=== PATIENT | male | born 1945 | race Caucasian/White ===

== ENCOUNTER → 2016-04-03 | Outpatient (REF) | payer MEDICARE | LOC: M LAB REF 16:38 | PROVIDERS: ATTEND Internal Medicine | DX: M10.9 Gout, unspecified (principal) ==

== ENCOUNTER 2016-05-23 12:36 | Emergency (ER) | payer MEDICARE ==
[~2016-05-23] VITALS: Ht 180.3 cm; Wt 95.3 kg
[2016-05-23] MEDS ORDERED: DIGO0.12 PO (12:55)
[2016-05-23] MEDS ORDERED: PANT40TA2 PO (12:55)
[2016-05-23] MEDS ORDERED: POTA10TA2 PO (12:55)
[2016-05-23] MEDS ORDERED: INSUR (12:55)
[2016-05-23] MEDS ORDERED: LEVE1INJ5 (12:55)
[2016-05-23] MEDS ORDERED: AMOX500C (12:55)
[2016-05-23] MEDS ORDERED: GABA300C3 PO (12:55)
[2016-05-23] MEDS ORDERED: FURO20TA2 PO (12:55)
[2016-05-23] MEDS ORDERED: ONETTES6 (12:55)
[2016-05-23] MEDS ORDERED: PRED10TA (12:55)
[2016-05-23] MEDS ORDERED: XARE20TA PO (12:55)
[2016-05-23 14:11] LABS: BASO % 0.4 % (0.0-1.0); EOS # 0.1 K/mm3 (0.0-0.50); EOS % 0.8 % (0.0-3.0); LARGE UNSTAINED CELL # 0.1 K/mm3 (0.0-0.4); LARGE UNSTAINED CELL % 0.8 % (0.0-4.0); LYMPH # 0.3 K/mm3 (1.5-4.5); MEAN CORPUSCULAR HEMOGLOBIN 27.4 pg (27.0-33.0); MEAN CORPUSCULAR HGB CONC 31.7 g/dl (32.0-36.5); MEAN CORPUSCULAR VOLUME 86.2 fl (80.0-96.0); MONO # 0.3 K/mm3 (0.0-0.8); MONO % 3.5 % (0.0-5.0); NEUTROPHILS # 6.8 K/mm3 (1.8-7.7); NEUTROPHILS % 91.5 % (36.0-66.0); PLATELET COUNT, AUTOMATED 162 k/mm3 (150-450); RED CELL DISTRIBUTION WIDTH 15.3 % (11.5-14.5); WHITE BLOOD COUNT 7.5 K/mm3 (4.0-10.0)
[2016-05-23] MEDS ORDERED: METOPROLOL TART 50 MG TAB PO ONE (14:15)
[2016-05-23] MEDS: METOPROLOL 5 MG/5 ML VIAL IV SCH ×3 (14:20→14:52)
[2016-05-23 14:37] LABS: ANION GAP 15 MEQ/L (8-16); BLOOD UREA NITROGEN 26 MG/DL (7-18); CALCIUM LEVEL 9.1 MG/DL (8.8-10.2); CARBON DIOXIDE LEVEL 25 MEQ/L (21-32); CHLORIDE LEVEL 95 MEQ/L (98-107); CREATININE FOR GFR 1.48 MG/DL (0.70-1.30); GLOMERULAR FILTRATION RATE 50.2 (>49); GLUCOSE, FASTING 181 MG/DL (80-110); POTASSIUM SERUM 4.3 MEQ/L (3.5-5.1); SODIUM LEVEL 135 MEQ/L (136-145)
[2016-05-23 14:52] VITALS: BP 156/93
[2016-05-23] MEDS ORDERED: LOPR1TAB6 PO (16:48)
[2016-05-23 17:17] VITALS: BP 164/90
--- NOTE | 2016-05-24 20:46 | ECGEPIP ---
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
== END 2016-05-23 17:30 | disposition home or self-care (01) ==
LOC: M ED 14:49
DX: I48.91 Unspecified atrial fibrillation (principal); I10 Essential (primary) hypertension; I45.10 Unspecified right bundle-branch block; E11.9 Type 2 diabetes mellitus without complications; Z79.899 Other long term (current) drug therapy; Z79.01 Long term (current) use of anticoagulants; Z79.4 Long term (current) use of insulin

== ENCOUNTER 2016-11-25 23:54 | Emergency (ER) | payer MEDICARE ==
[~2016-11-25] VITALS: Ht 180.3 cm; Wt 100.0 kg
[~2016-11-25 23:54] MED LIST: AMOX500C; DIGO0.12 PO; FURO20TA2 PO; GABA-282 PO; INSUR; LEVE1INJ5; LOPR1TAB6 PO; ONETTES6; PANT40TA2 PO; POTA1TAB23 PO; PRED10TA2; XARE20TA PO
[2016-11-26 00:44] LABS: CALCIUM LEVEL 8.5 MG/DL (8.8-10.2); CREATININE FOR GFR 1.33 MG/DL (0.70-1.30); GLOMERULAR FILTRATION RATE 56.8 (>49); POTASSIUM SERUM 3.9 MEQ/L (3.5-5.1)
[2016-11-26 00:46] LABS: MEAN CORPUSCULAR HEMOGLOBIN 28.5 pg (27.0-33.0); MEAN CORPUSCULAR HGB CONC 33.2 g/dl (32.0-36.5); MEAN CORPUSCULAR VOLUME 85.8 fl (80.0-96.0); WHITE BLOOD COUNT 5.3 K/mm3 (4.0-10.0)
[2016-11-26 06:15] VITALS: BP 206/93
[2016-11-26] MEDS ORDERED: METOPROLOL TART 50 MG TAB PO ONE (06:15)
[2016-11-26 06:55] VITALS: BP 187/100
== END 2016-11-26 07:48 | disposition home or self-care (01) ==
LOC: EDUNIT# 23:54 → EDBD 23:54 → M ED 23:54
DX: T38.3X1A Poisoning by insulin and oral hypoglycemic [antidiabetic] drugs, accidental (unintentional), initial encounter (principal); Y92.018 Other place in single-family (private) house as the place of occurrence of the external cause; Y93.89 Activity, other specified; Y99.8 Other external cause status; E11.9 Type 2 diabetes mellitus without complications; Z79.4 Long term (current) use of insulin; Z79.899 Other long term (current) drug therapy; Z79.01 Long term (current) use of anticoagulants

== ENCOUNTER → 2016-11-30 | Outpatient (CLI) | payer MEDICARE ==
--- NOTE | 2016-11-30 16:40 | REP ---
Right wrist four views: There is demineralization. There is no fracture or dislocation. Joint spaces are unremarkable. There is calcified vascular atheroma. Signed by Armand Calvo MD 11/30/2016 04:32 P
== END ==
LOC: M WUC 10:54
PROVIDERS: ATTEND Physician Assistant
DX: S63.501A Unspecified sprain of right wrist, initial encounter (principal); M85.88 Other specified disorders of bone density and structure, other site; I70.8 Atherosclerosis of other arteries; X58.XXXA Exposure to other specified factors, initial encounter; Y92.9 Unspecified place or not applicable; Y93.9 Activity, unspecified; Y99.8 Other external cause status

== ENCOUNTER 2017-03-05 10:44 | Inpatient (IN) | payer MEDICARE ==
[2017-03-05 11:40] LABS: BASO # 0.1 10^3/uL (0.0-0.2); BASO % 0.8 % (0.0-1.0); EOS # 0.1 10^3/uL (0.0-0.50); EOS % 0.8 % (0.0-3.0); HEMATOCRIT 35.3 % (42.0-52.0); HEMOGLOBIN 11.2 g/dl (14.0-18.0); IMMATURE GRANULOCYTE # 0.1 10^3/uL (0-0); IMMATURE GRANULOCYTE % 0.9 % (0-0); LYMPH # 0.4 10^3/uL (1.5-4.5); LYMPH % 4.8 % (24.0-44.0); MEAN CORPUSCULAR HEMOGLOBIN 27.9 pg (27.0-33.0); MEAN CORPUSCULAR HGB CONC 31.7 g/dl (32.0-36.5); MONO % 11.2 % (0.0-5.0); NEUTROPHILS # 7.2 10^3/uL (1.8-7.7); NEUTROPHILS % 81.5 % (36.0-66.0); PLATELET COUNT, AUTOMATED 237 10^3/uL (150-450); RED BLOOD COUNT 4.01 10^6/uL (4.30-6.10); WHITE BLOOD COUNT 8.8 10^3/uL (4.0-10.0)
[2017-03-05 11:52] LABS: ANION GAP 9 MEQ/L (8-16); BLOOD UREA NITROGEN 17 MG/DL (7-18); CALCIUM LEVEL 8.6 MG/DL (8.8-10.2); CARBON DIOXIDE LEVEL 28 MEQ/L (21-32); CHLORIDE LEVEL 98 MEQ/L (98-107); CK-MB VALUE MASS 1.1 NG/ML (0.0-3.6); CPK CREATINE PHOSPHOKINASE 34 U/L (39-308); CREATININE FOR GFR 0.96 MG/DL (0.70-1.30); GLOMERULAR FILTRATION RATE > 60.0 (>49); GLUCOSE, FASTING 196 MG/DL (80-110); MB/CK RELATIVE INDEX 3.23 (< OR =4); NT-PRO BNP 6099 PG/ML (<125); POTASSIUM SERUM 3.4 MEQ/L (3.5-5.1); SODIUM LEVEL 135 MEQ/L (136-145); TROPONIN I 0.03 NG/ML (< 0.10)
[2017-03-05] MEDS: METOPROLOL TART 50 MG TAB PO (12:15)
[2017-03-05] MEDS: FUROSEMIDE 40 MG/4 ML VIAL (J1940) IV ×2 (12:15→17:27)
[2017-03-05 12:32] LABS: DIGOXIN LEVEL 0.7 NG/ML (0.5-2.0)
[2017-03-05] MEDS ORDERED: NITROGLYCERIN 2% OINT 1 GM *U/D* PKT As Ordered (12:55)
[2017-03-05] MEDS: NITROGLYCERIN 2% OINT 1 GM *U/D* PKT TOP (13:00)
[2017-03-05] MEDS: niCARdipine IV 40 MG in APPROPRIATE DILUENT 1 EA IV (13:08)
[2017-03-05 13:29] LABS: MAGNESIUM LEVEL 1.6 MG/DL (1.8-2.4)
[2017-03-05] MEDS: POTASSIUM CHLORIDE 10 MEQ SR TABLET PO (13:54)
[2017-03-05] MEDS: ONDANSETRON 4MG/2ML VIAL (J2405) IV (13:54)
[2017-03-05] MEDS ORDERED: IPRATROPIUM 0.5MG/ALBUTEROL 2.5MG INH SOL UD 3ML (DUONEB)(J7620) NEB (14:45)
[2017-03-05 14:54] LABS: C REACTIVE PROTEIN QUANTITATIV 2.77 MG/DL (0.00-0.30)
[2017-03-05] MEDS ORDERED: GLUCAGON FOR INJ 1 MG VIAL (J1610) SC (15:00)
[2017-03-05] MEDS ORDERED: DEXTROSE 50% 50 ML SYRINGE IV (15:00)
[2017-03-05] MEDS ORDERED: GLUCOSE 4 GM CHEW TABLET PO (15:00)
[2017-03-05] MEDS: hydrALAZINE INJ 20 MG/ML VIAL IV ×2 (17:26→22:26)
[2017-03-05] MEDS: MAG SULF 1GM/100ML (MAG RUN) 1 GM in APPROPRIATE DILUENT 1 EA IV (17:26)
[2017-03-05] MEDS: PANTOPRAZOLE 40MG TAB (PROTONIX) PO (17:27)
[2017-03-05] MEDS: MULTIVITAMINS/MINERALS THERAP 1 TAB PO (17:27)
[2017-03-05] MEDS: THIAMINE 100 MG TAB PO (17:27)
[2017-03-05] MEDS: DIGOXIN 0.125 MG TAB PO (17:27)
[2017-03-05] MEDS: FOLIC ACID 1 MG TAB PO (17:28)
[2017-03-05] MEDS ORDERED: CEFTRIAXONE SOD 1 GM in APPROPRIATE DILUENT 1 EA IV (18:00)
[2017-03-05] MEDS: AZITHROMYCIN INJ 500 MG, VIAL MATE ADAPTER 1 EACH in D5W 250 ML IV (18:26)
[2017-03-05] MEDS: HumaLOG INSULIN (NovoLOG) PER UNIT SC ×2 (18:27→20:50)
[2017-03-05] MEDS: OXAZEPAM 10 MG CAP PO (18:27)
[2017-03-05] MEDS: RIVAROXABAN 20 MG TAB (XARELTO) PO (18:27)
[2017-03-05 18:38] LABS: BEDSIDE GLUCOSE 241 MG/DL (80-115)
[2017-03-05 18:43] LABS: ANION GAP 10 MEQ/L (8-16); BLOOD UREA NITROGEN 17 MG/DL (7-18); CALCIUM LEVEL 8.1 MG/DL (8.8-10.2); CARBON DIOXIDE LEVEL 29 MEQ/L (21-32); CHLORIDE LEVEL 96 MEQ/L (98-107); CK-MB VALUE MASS 2.7 NG/ML (0.0-3.6); CPK CREATINE PHOSPHOKINASE 49 U/L (39-308); CREATININE FOR GFR 0.94 MG/DL (0.70-1.30); GLOMERULAR FILTRATION RATE > 60.0 (>49); GLUCOSE, FASTING 224 MG/DL (80-110); MB/CK RELATIVE INDEX 5.51 (< OR =4); POTASSIUM SERUM 4.4 MEQ/L (3.5-5.1); SODIUM LEVEL 135 MEQ/L (136-145)
[2017-03-05] MEDS: IPRATROPIUM 0.5MG/ALBUTEROL 2.5MG INH SOL UD 3ML (DUONEB)(J7620) NEB (19:39)
[2017-03-05 20:17] LABS: BEDSIDE GLUCOSE 275 MG/DL (80-115)
[2017-03-05] MEDS: LEVEMIR (INSULIN DETEMIR) 1 UNITS/0.01ML SC (20:49)
[2017-03-05] MEDS: CEFTRIAXONE SOD 1 GM in APPROPRIATE DILUENT 1 EA IV (20:49)
[2017-03-05] MEDS: GABAPENTIN 300 MG CAP PO (20:50)
[2017-03-05] MEDS: METOPROLOL TARTRATE 100 MG TAB PO (20:50)
[2017-03-05] MEDS: guaiFENesin ER 600 MG TAB PO (20:50)
[2017-03-05] MEDS ORDERED: SLF 3 ML SYR IV (21:15)
[2017-03-05] MEDS: SLF 3 ML SYR IV (22:27)
[2017-03-06] MEDS: OXAZEPAM 10 MG CAP PO ×5 (00:10→23:25)
[2017-03-06] MEDS: IPRATROPIUM 0.5MG/ALBUTEROL 2.5MG INH SOL UD 3ML (DUONEB)(J7620) NEB ×4 (01:17→20:17)
[2017-03-06 02:43] LABS: CK-MB VALUE MASS 2.4 NG/ML (0.0-3.6); CPK CREATINE PHOSPHOKINASE 40 U/L (39-308); TROPONIN I 0.18 NG/ML (< 0.10)
[2017-03-06] MEDS: hydrALAZINE INJ 20 MG/ML VIAL IV ×4 (04:24→22:48)
[2017-03-06] MEDS: SLF 3 ML SYR IV ×3 (05:15→22:00)
[2017-03-06 05:19] LABS: BASO # 0.1 10^3/uL (0.0-0.2); BASO % 0.7 % (0.0-1.0); EOS # 0.1 10^3/uL (0.0-0.50); EOS % 1.4 % (0.0-3.0); HEMOGLOBIN 10.3 g/dl (14.0-18.0); IMMATURE GRANULOCYTE % 0.5 % (0-0); LYMPH # 0.8 10^3/uL (1.5-4.5); LYMPH % 9.5 % (24.0-44.0); MEAN CORPUSCULAR HGB CONC 31.2 g/dl (32.0-36.5); MEAN CORPUSCULAR VOLUME 89.7 fl (80.0-96.0); MONO # 1.1 10^3/uL (0.0-0.8); MONO % 13.3 % (0.0-5.0); NEUTROPHILS # 6.4 10^3/uL (1.8-7.7); NEUTROPHILS % 74.6 % (36.0-66.0); PLATELET COUNT, AUTOMATED 183 10^3/uL (150-450); RED BLOOD COUNT 3.68 10^6/uL (4.30-6.10); RED CELL DISTRIBUTION WIDTH 15.1 % (11.5-14.5); WHITE BLOOD COUNT 8.6 10^3/uL (4.0-10.0)
[2017-03-06 05:42] LABS: ALBUMIN 2.8 GM/DL (3.2-5.2); ALBUMIN/GLOBULIN RATIO 0.78 (1.00-1.93); ALKALINE PHOSPHATASE 81 U/L (45-117); ALT/SGPT 13 U/L (12-78); ANION GAP 8 MEQ/L (8-16); AST/SGOT 19 U/L (7-37); BILIRUBIN,TOTAL 0.6 MG/DL (0.2-1.0); BLOOD UREA NITROGEN 18 MG/DL (7-18); C REACTIVE PROTEIN QUANTITATIV 4.17 MG/DL (0.00-0.30); CALCIUM LEVEL 7.6 MG/DL (8.8-10.2); CARBON DIOXIDE LEVEL 32 MEQ/L (21-32); CHLORIDE LEVEL 98 MEQ/L (98-107); CREATININE FOR GFR 1.06 MG/DL (0.70-1.30); GLOMERULAR FILTRATION RATE > 60.0 (>49); GLUCOSE, FASTING 87 MG/DL (80-110); MAGNESIUM LEVEL 1.8 MG/DL (1.8-2.4); POTASSIUM SERUM 3.5 MEQ/L (3.5-5.1); SODIUM LEVEL 138 MEQ/L (136-145); TOTAL PROTEIN 6.4 GM/DL (6.4-8.2)
[2017-03-06] MEDS: HumaLOG INSULIN (NovoLOG) PER UNIT SC ×4 (06:14→20:50)
[2017-03-06] MEDS: METOPROLOL TARTRATE 100 MG TAB PO ×2 (07:54→20:50)
[2017-03-06] MEDS: DIGOXIN 0.125 MG TAB PO (08:17)
[2017-03-06] MEDS: THIAMINE 100 MG TAB PO (08:18)
[2017-03-06] MEDS: GABAPENTIN 300 MG CAP PO ×2 (08:18→20:50)
[2017-03-06] MEDS: FUROSEMIDE 40 MG/4 ML VIAL (J1940) IV ×2 (08:18→18:08)
[2017-03-06] MEDS: POTASSIUM CHLORIDE 10 MEQ SR TABLET PO ×2 (08:18→11:43)
[2017-03-06] MEDS: MULTIVITAMINS/MINERALS THERAP 1 TAB PO (08:19)
[2017-03-06] MEDS: guaiFENesin ER 600 MG TAB PO ×2 (08:19→20:51)
[2017-03-06] MEDS: PANTOPRAZOLE 40MG TAB (PROTONIX) PO (08:19)
[2017-03-06] MEDS: FOLIC ACID 1 MG TAB PO (11:43)
[2017-03-06 11:46] LABS: BEDSIDE GLUCOSE 207 MG/DL (80-115)
[2017-03-06 17:09] LABS: BEDSIDE GLUCOSE 266 MG/DL (80-115)
[2017-03-06] MEDS: AZITHROMYCIN INJ 500 MG, VIAL MATE ADAPTER 1 EACH in D5W 250 ML IV (18:07)
[2017-03-06] MEDS: RIVAROXABAN 20 MG TAB (XARELTO) PO (18:08)
[2017-03-06 20:28] LABS: BEDSIDE GLUCOSE 315 MG/DL (80-115)
[2017-03-06] MEDS: CEFTRIAXONE SOD 1 GM in APPROPRIATE DILUENT 1 EA IV (20:49)
[2017-03-06] MEDS: LEVEMIR (INSULIN DETEMIR) 1 UNITS/0.01ML SC (20:50)
[2017-03-07] MEDS: IPRATROPIUM 0.5MG/ALBUTEROL 2.5MG INH SOL UD 3ML (DUONEB)(J7620) NEB ×4 (02:00→20:18)
[2017-03-07] MEDS: hydrALAZINE INJ 20 MG/ML VIAL IV ×4 (04:47→22:00)
[2017-03-07] MEDS: SLF 3 ML SYR IV ×3 (04:47→22:08)
[2017-03-07] MEDS: OXAZEPAM 10 MG CAP PO ×4 (05:25→18:26)
[2017-03-07] MEDS: ACETAMINOPHEN TAB 650MG DOSE (2X325MG) PO ×2 (05:28→17:16)
[2017-03-07 05:51] LABS: BASO # 0.1 10^3/uL (0.0-0.2); BASO % 0.7 % (0.0-1.0); EOS # 0.1 10^3/uL (0.0-0.50); EOS % 1.4 % (0.0-3.0); HEMATOCRIT 32.2 % (42.0-52.0); HEMOGLOBIN 10.2 g/dl (14.0-18.0); IMMATURE GRANULOCYTE # 0.1 10^3/uL (0-0); IMMATURE GRANULOCYTE % 0.7 % (0-0); LYMPH # 0.8 10^3/uL (1.5-4.5); LYMPH % 9.2 % (24.0-44.0); MEAN CORPUSCULAR HEMOGLOBIN 28.4 pg (27.0-33.0); MEAN CORPUSCULAR HGB CONC 31.7 g/dl (32.0-36.5); MEAN CORPUSCULAR VOLUME 89.7 fl (80.0-96.0); MONO # 1.1 10^3/uL (0.0-0.8); MONO % 12.6 % (0.0-5.0); NEUTROPHILS # 6.7 10^3/uL (1.8-7.7); NEUTROPHILS % 75.4 % (36.0-66.0); PLATELET COUNT, AUTOMATED 180 10^3/uL (150-450); RED BLOOD COUNT 3.59 10^6/uL (4.30-6.10); RED CELL DISTRIBUTION WIDTH 15.1 % (11.5-14.5); WHITE BLOOD COUNT 8.9 10^3/uL (4.0-10.0)
[2017-03-07 06:10] LABS: ALBUMIN 2.8 GM/DL (3.2-5.2); ALBUMIN/GLOBULIN RATIO 0.76 (1.00-1.93); ALKALINE PHOSPHATASE 79 U/L (45-117); ALT/SGPT 10 U/L (12-78); ANION GAP 8 MEQ/L (8-16); AST/SGOT 15 U/L (7-37); BILIRUBIN,TOTAL 0.4 MG/DL (0.2-1.0); BLOOD UREA NITROGEN 23 MG/DL (7-18); C REACTIVE PROTEIN QUANTITATIV 6.42 MG/DL (0.00-0.30); CALCIUM LEVEL 7.8 MG/DL (8.8-10.2); CARBON DIOXIDE LEVEL 30 MEQ/L (21-32); CHLORIDE LEVEL 103 MEQ/L (98-107); CREATININE FOR GFR 1.12 MG/DL (0.70-1.30); GLOMERULAR FILTRATION RATE > 60.0 (>49); GLUCOSE, FASTING 159 MG/DL (80-110); MAGNESIUM LEVEL 1.6 MG/DL (1.8-2.4); POTASSIUM SERUM 3.6 MEQ/L (3.5-5.1); SODIUM LEVEL 141 MEQ/L (136-145); TOTAL PROTEIN 6.5 GM/DL (6.4-8.2)
[2017-03-07] MEDS: HumaLOG INSULIN (NovoLOG) PER UNIT SC ×4 (08:00→20:12)
[2017-03-07] MEDS: FUROSEMIDE 40 MG/4 ML VIAL (J1940) IV ×3 (08:00→22:09)
[2017-03-07] MEDS: guaiFENesin ER 600 MG TAB PO ×2 (08:01→20:13)
[2017-03-07] MEDS: FOLIC ACID 1 MG TAB PO (08:01)
[2017-03-07] MEDS: DIGOXIN 0.125 MG TAB PO (08:01)
[2017-03-07] MEDS: PANTOPRAZOLE 40MG TAB (PROTONIX) PO (08:01)
[2017-03-07] MEDS: MULTIVITAMINS/MINERALS THERAP 1 TAB PO (08:01)
[2017-03-07] MEDS: METOPROLOL TARTRATE 100 MG TAB PO ×2 (08:01→20:13)
[2017-03-07] MEDS: GABAPENTIN 300 MG CAP PO ×2 (08:02→20:13)
[2017-03-07] MEDS: POTASSIUM CHLORIDE 10 MEQ SR TABLET PO (08:02)
[2017-03-07] MEDS: THIAMINE 100 MG TAB PO (08:04)
[2017-03-07 11:41] LABS: BEDSIDE GLUCOSE 237 MG/DL (80-115)
[2017-03-07] MEDS ORDERED: FUROSEMIDE 40 MG/4 ML VIAL (J1940) IV (14:00)
[2017-03-07] MEDS: amLODIPine 10 MG TAB PO (15:28)
[2017-03-07 17:14] LABS: BEDSIDE GLUCOSE 256 MG/DL (80-115)
[2017-03-07] MEDS: AZITHROMYCIN INJ 500 MG, VIAL MATE ADAPTER 1 EACH in D5W 250 ML IV (17:16)
[2017-03-07] MEDS: RIVAROXABAN 20 MG TAB (XARELTO) PO (17:17)
[2017-03-07 20:11] LABS: BEDSIDE GLUCOSE 286 MG/DL (80-115)
[2017-03-07] MEDS: LEVEMIR (INSULIN DETEMIR) 1 UNITS/0.01ML SC (20:12)
[2017-03-07] MEDS: CEFTRIAXONE SOD 1 GM in APPROPRIATE DILUENT 1 EA IV (20:13)
[2017-03-08] MEDS: OXAZEPAM 10 MG CAP PO ×5 (00:58→21:10)
[2017-03-08] MEDS: ACETAMINOPHEN TAB 650MG DOSE (2X325MG) PO ×2 (00:58→09:01)
[2017-03-08] MEDS: IPRATROPIUM 0.5MG/ALBUTEROL 2.5MG INH SOL UD 3ML (DUONEB)(J7620) NEB ×4 (01:53→20:47)
[2017-03-08] MEDS: hydrALAZINE INJ 20 MG/ML VIAL IV (04:37)
[2017-03-08 05:32] LABS: BASO % 0.4 % (0.0-1.0); EOS # 0.1 10^3/uL (0.0-0.50); EOS % 0.7 % (0.0-3.0); HEMATOCRIT 32.1 % (42.0-52.0); HEMOGLOBIN 10.2 g/dl (14.0-18.0); IMMATURE GRANULOCYTE # 0.1 10^3/uL (0-0); IMMATURE GRANULOCYTE % 0.6 % (0-0); LYMPH # 0.4 10^3/uL (1.5-4.5); LYMPH % 4.2 % (24.0-44.0); MEAN CORPUSCULAR HEMOGLOBIN 28.1 pg (27.0-33.0); MEAN CORPUSCULAR HGB CONC 31.8 g/dl (32.0-36.5); MEAN CORPUSCULAR VOLUME 88.4 fl (80.0-96.0); MONO # 1.3 10^3/uL (0.0-0.8); MONO % 12.3 % (0.0-5.0); NEUTROPHILS # 8.4 10^3/uL (1.8-7.7); NEUTROPHILS % 81.8 % (36.0-66.0); PLATELET COUNT, AUTOMATED 189 10^3/uL (150-450); RED BLOOD COUNT 3.63 10^6/uL (4.30-6.10); RED CELL DISTRIBUTION WIDTH 15.2 % (11.5-14.5); WHITE BLOOD COUNT 10.3 10^3/uL (4.0-10.0)
[2017-03-08 05:47] LABS: ALBUMIN 2.7 GM/DL (3.2-5.2); ALBUMIN/GLOBULIN RATIO 0.66 (1.00-1.93); ALKALINE PHOSPHATASE 80 U/L (45-117); ALT/SGPT 9 U/L (12-78); ANION GAP 9 MEQ/L (8-16); AST/SGOT 12 U/L (7-37); BILIRUBIN,TOTAL 0.8 MG/DL (0.2-1.0); BLOOD UREA NITROGEN 21 MG/DL (7-18); CALCIUM LEVEL 7.7 MG/DL (8.8-10.2); CARBON DIOXIDE LEVEL 29 MEQ/L (21-32); CHLORIDE LEVEL 98 MEQ/L (98-107); CREATININE FOR GFR 1.08 MG/DL (0.70-1.30); GLOMERULAR FILTRATION RATE > 60.0 (>49); GLUCOSE, FASTING 241 MG/DL (80-110); MAGNESIUM LEVEL 1.3 MG/DL (1.8-2.4); POTASSIUM SERUM 3.6 MEQ/L (3.5-5.1); SODIUM LEVEL 136 MEQ/L (136-145); TOTAL PROTEIN 6.8 GM/DL (6.4-8.2)
[2017-03-08] MEDS: FUROSEMIDE 40 MG/4 ML VIAL (J1940) IV ×2 (06:23→17:27)
[2017-03-08] MEDS: SLF 3 ML SYR IV ×3 (06:23→21:06)
[2017-03-08] MEDS: MAG SULF 1GM/100ML (MAG RUN) 1 GM in APPROPRIATE DILUENT 1 EA IV ×2 (06:54→08:58)
[2017-03-08] MEDS: THIAMINE 100 MG TAB PO (08:59)
[2017-03-08] MEDS: HumaLOG INSULIN (NovoLOG) PER UNIT SC ×4 (08:59→21:05)
[2017-03-08] MEDS: guaiFENesin ER 600 MG TAB PO ×2 (08:59→21:04)
[2017-03-08] MEDS: PANTOPRAZOLE 40MG TAB (PROTONIX) PO (08:59)
[2017-03-08] MEDS: GABAPENTIN 300 MG CAP PO ×2 (08:59→21:05)
[2017-03-08] MEDS: METOPROLOL TARTRATE 100 MG TAB PO ×2 (08:59→21:04)
[2017-03-08] MEDS: amLODIPine 10 MG TAB PO (08:59)
[2017-03-08] MEDS: POTASSIUM CHLORIDE 10 MEQ SR TABLET PO (09:00)
[2017-03-08] MEDS: FOLIC ACID 1 MG TAB PO (09:00)
[2017-03-08] MEDS: MULTIVITAMINS/MINERALS THERAP 1 TAB PO (09:00)
[2017-03-08] MEDS: DIGOXIN 0.125 MG TAB PO (09:00)
[2017-03-08 13:29] LABS: BEDSIDE GLUCOSE 269 MG/DL (80-115)
[2017-03-08] MEDS: AZITHROMYCIN INJ 500 MG, VIAL MATE ADAPTER 1 EACH in D5W 250 ML IV (17:27)
[2017-03-08] MEDS: RIVAROXABAN 20 MG TAB (XARELTO) PO (18:35)
[2017-03-08 21:05] LABS: BEDSIDE GLUCOSE 282 MG/DL (80-115)
[2017-03-08 21:05] LABS: BEDSIDE GLUCOSE 239 MG/DL (80-115)
[2017-03-08] MEDS: LEVEMIR (INSULIN DETEMIR) 1 UNITS/0.01ML SC (21:06)
[2017-03-08] MEDS: CEFTRIAXONE SOD 1 GM in APPROPRIATE DILUENT 1 EA IV (21:06)
[2017-03-09] MEDS: ACETAMINOPHEN TAB 650MG DOSE (2X325MG) PO ×2 (00:12→21:21)
[2017-03-09] MEDS: OXAZEPAM 10 MG CAP PO ×5 (00:13→17:17)
[2017-03-09] MEDS: FUROSEMIDE 40 MG/4 ML VIAL (J1940) IV ×5 (00:17→21:20)
[2017-03-09] MEDS: IPRATROPIUM 0.5MG/ALBUTEROL 2.5MG INH SOL UD 3ML (DUONEB)(J7620) NEB ×4 (02:00→21:39)
[2017-03-09 04:33] LABS: BEDSIDE GLUCOSE 213 MG/DL (80-115)
[2017-03-09 05:33] LABS: BASO % 0.3 % (0.0-1.0); HEMATOCRIT 30.5 % (42.0-52.0); HEMOGLOBIN 9.7 g/dl (14.0-18.0); IMMATURE GRANULOCYTE # 0.1 10^3/uL (0-0); IMMATURE GRANULOCYTE % 0.7 % (0-0); LYMPH # 0.5 10^3/uL (1.5-4.5); LYMPH % 3.3 % (24.0-44.0); MEAN CORPUSCULAR HEMOGLOBIN 28.4 pg (27.0-33.0); MEAN CORPUSCULAR HGB CONC 31.8 g/dl (32.0-36.5); MEAN CORPUSCULAR VOLUME 89.2 fl (80.0-96.0); MONO # 1.8 10^3/uL (0.0-0.8); MONO % 12.8 % (0.0-5.0); NEUTROPHILS # 11.6 10^3/uL (1.8-7.7); NEUTROPHILS % 82.9 % (36.0-66.0); PLATELET COUNT, AUTOMATED 170 10^3/uL (150-450); RED BLOOD COUNT 3.42 10^6/uL (4.30-6.10); RED CELL DISTRIBUTION WIDTH 15.4 % (11.5-14.5)
[2017-03-09 05:59] LABS: ALBUMIN 2.6 GM/DL (3.2-5.2); ALKALINE PHOSPHATASE 69 U/L (45-117); ALT/SGPT 9 U/L (12-78); ANION GAP 8 MEQ/L (8-16); AST/SGOT 11 U/L (7-37); BILIRUBIN,TOTAL 0.7 MG/DL (0.2-1.0); BLOOD UREA NITROGEN 21 MG/DL (7-18); CARBON DIOXIDE LEVEL 30 MEQ/L (21-32); CHLORIDE LEVEL 94 MEQ/L (98-107); CREATININE FOR GFR 1.09 MG/DL (0.70-1.30); GLOMERULAR FILTRATION RATE > 60.0 (>49); GLUCOSE, FASTING 220 MG/DL (80-110); MAGNESIUM LEVEL 1.8 MG/DL (1.8-2.4); POTASSIUM SERUM 3.2 MEQ/L (3.5-5.1); SODIUM LEVEL 132 MEQ/L (136-145); TOTAL PROTEIN 6.9 GM/DL (6.4-8.2)
[2017-03-09] MEDS: SLF 3 ML SYR IV ×3 (06:00→22:11)
[2017-03-09] MEDS: HumaLOG INSULIN (NovoLOG) PER UNIT SC ×4 (08:45→22:10)
[2017-03-09] MEDS: GABAPENTIN 300 MG CAP PO ×2 (08:46→21:20)
[2017-03-09] MEDS: amLODIPine 10 MG TAB PO (08:46)
[2017-03-09] MEDS: MULTIVITAMINS/MINERALS THERAP 1 TAB PO (08:46)
[2017-03-09] MEDS: guaiFENesin ER 600 MG TAB PO ×2 (08:46→21:20)
[2017-03-09] MEDS: THIAMINE 100 MG TAB PO (08:46)
[2017-03-09] MEDS: METOPROLOL TARTRATE 100 MG TAB PO ×2 (08:47→21:20)
[2017-03-09] MEDS: POTASSIUM CHLORIDE 10 MEQ SR TABLET PO ×2 (08:47→08:50)
[2017-03-09] MEDS: DIGOXIN 0.125 MG TAB PO (08:47)
[2017-03-09] MEDS: FOLIC ACID 1 MG TAB PO (08:47)
[2017-03-09] MEDS: PANTOPRAZOLE 40MG TAB (PROTONIX) PO (08:47)
[2017-03-09 09:18] LABS: ABG BASE EXCESS 4.7 (-2.0-2.0); ABG HCO3 28.2 MEQ/L (22.0-26.0); ABG O2 SATURATION 95.8 % (95.0-99.0); ABG PARTIAL PRESSURE CO2 37.8 mmHg (35.0-45.0); ABG PARTIAL PRESSURE O2 76.3 mmHg (75.0-100.0); ABG STANDARD HCO3 28.7 MEQ/L (22.0-26.0); ABG TOTAL CO2 29.4 MEQ/L (23.0-31.0); ABG pH (ARTERIAL) 7.491 UNITS (7.350-7.450)
[2017-03-09 10:03] LABS: NT-PRO BNP 6612 PG/ML (<125)
[2017-03-09 10:16] LABS: OSMOLALITY SERUM 290 MOSM/KG (280-301)
[2017-03-09 11:47] LABS: KETONE, URINE AUTO RFX NEGATIVE (NEGATIVE); LEUKOCYTE ESTERASE UR AUTO RFX NEGATIVE (NEGATIVE); NITRITE, URINE AUTO RFX NEGATIVE (NEGATIVE); RBC, URINE AUTO RFX 0 /HPF (0-3); SPECIFIC GRAVITY UR AUTO RFX 1.013 (1.002-1.035); SQUAM EPITHELIAL CELL UR AURFX 0 /HPF (0-6); WBC, URINE AUTO RFX 1 /HPF (0-3)
[2017-03-09 11:48] LABS: BEDSIDE GLUCOSE 210 MG/DL (80-115)
[2017-03-09 11:49] LABS: OSMOLALITY URINE 429 MOSM/KG (500-800)
[2017-03-09] MEDS: RIVAROXABAN 20 MG TAB (XARELTO) PO (17:17)
[2017-03-09] MEDS: AZITHROMYCIN INJ 500 MG, VIAL MATE ADAPTER 1 EACH in D5W 250 ML IV (17:17)
[2017-03-09 17:32] LABS: BEDSIDE GLUCOSE 202 MG/DL (80-115)
[2017-03-09] MEDS: CEFTRIAXONE SOD 1 GM in APPROPRIATE DILUENT 1 EA IV (21:22)
[2017-03-09] MEDS: LEVEMIR (INSULIN DETEMIR) 1 UNITS/0.01ML SC (21:22)
[2017-03-09 22:26] LABS: BEDSIDE GLUCOSE 271 MG/DL (80-115)
[2017-03-10] MEDS: IPRATROPIUM 0.5MG/ALBUTEROL 2.5MG INH SOL UD 3ML (DUONEB)(J7620) NEB ×4 (02:24→20:45)
[2017-03-10] MEDS: FUROSEMIDE 40 MG/4 ML VIAL (J1940) IV ×6 (03:56→20:49)
[2017-03-10] MEDS: ACETAMINOPHEN TAB 650MG DOSE (2X325MG) PO ×2 (04:02→08:36)
[2017-03-10] MEDS: SLF 3 ML SYR IV ×3 (04:03→21:02)
[2017-03-10] MEDS: OXAZEPAM 10 MG CAP PO ×4 (05:34→16:39)
[2017-03-10 05:35] LABS: BASO % 0.4 % (0.0-1.0); EOS % 0.3 % (0.0-3.0); HEMATOCRIT 30.1 % (42.0-52.0); HEMOGLOBIN 9.6 g/dl (14.0-18.0); IMMATURE GRANULOCYTE # 0.1 10^3/uL (0-0); IMMATURE GRANULOCYTE % 0.4 % (0-0); LYMPH # 0.5 10^3/uL (1.5-4.5); LYMPH % 4.5 % (24.0-44.0); MEAN CORPUSCULAR HEMOGLOBIN 28.3 pg (27.0-33.0); MEAN CORPUSCULAR HGB CONC 31.9 g/dl (32.0-36.5); MEAN CORPUSCULAR VOLUME 88.8 fl (80.0-96.0); MONO % 9.1 % (0.0-5.0); NEUTROPHILS # 9.5 10^3/uL (1.8-7.7); NEUTROPHILS % 85.3 % (36.0-66.0); PLATELET COUNT, AUTOMATED 193 10^3/uL (150-450); RED BLOOD COUNT 3.39 10^6/uL (4.30-6.10); RED CELL DISTRIBUTION WIDTH 15.3 % (11.5-14.5); WHITE BLOOD COUNT 11.1 10^3/uL (4.0-10.0)
[2017-03-10 05:58] LABS: ALBUMIN 2.3 GM/DL (3.2-5.2); ALBUMIN/GLOBULIN RATIO 0.51 (1.00-1.93); ALKALINE PHOSPHATASE 75 U/L (45-117); ALT/SGPT 10 U/L (12-78); ANION GAP 7 MEQ/L (8-16); AST/SGOT 14 U/L (7-37); BILIRUBIN,TOTAL 0.6 MG/DL (0.2-1.0); BLOOD UREA NITROGEN 27 MG/DL (7-18); CARBON DIOXIDE LEVEL 32 MEQ/L (21-32); CHLORIDE LEVEL 96 MEQ/L (98-107); CREATININE FOR GFR 1.17 MG/DL (0.70-1.30); GLOMERULAR FILTRATION RATE > 60.0 (>49); GLUCOSE, FASTING 199 MG/DL (80-110); MAGNESIUM LEVEL 1.9 MG/DL (1.8-2.4); POTASSIUM SERUM 3.4 MEQ/L (3.5-5.1); SODIUM LEVEL 135 MEQ/L (136-145); TOTAL PROTEIN 6.8 GM/DL (6.4-8.2)
[2017-03-10] MEDS: FOLIC ACID 1 MG TAB PO (08:35)
[2017-03-10] MEDS: MULTIVITAMINS/MINERALS THERAP 1 TAB PO (08:35)
[2017-03-10] MEDS: THIAMINE 100 MG TAB PO (08:35)
[2017-03-10] MEDS: guaiFENesin ER 600 MG TAB PO ×2 (08:35→20:51)
[2017-03-10] MEDS: PANTOPRAZOLE 40MG TAB (PROTONIX) PO (08:35)
[2017-03-10] MEDS: GABAPENTIN 300 MG CAP PO ×2 (08:36→20:51)
[2017-03-10] MEDS: POTASSIUM CHLORIDE 10 MEQ SR TABLET PO (08:36)
[2017-03-10] MEDS: amLODIPine 10 MG TAB PO (08:49)
[2017-03-10] MEDS: DIGOXIN 0.125 MG TAB PO (08:49)
[2017-03-10] MEDS: METOPROLOL TARTRATE 100 MG TAB PO ×2 (08:49→20:51)
[2017-03-10] MEDS: HumaLOG INSULIN (NovoLOG) PER UNIT SC ×4 (08:55→21:01)
[2017-03-10 12:14] LABS: BEDSIDE GLUCOSE 212 MG/DL (80-115)
[2017-03-10] MEDS: AZITHROMYCIN INJ 500 MG, VIAL MATE ADAPTER 1 EACH in D5W 250 ML IV (16:40)
[2017-03-10 17:59] LABS: BEDSIDE GLUCOSE 275 MG/DL (80-115)
[2017-03-10] MEDS: RIVAROXABAN 20 MG TAB (XARELTO) PO (18:44)
[2017-03-10] MEDS: CEFTRIAXONE SOD 1 GM in APPROPRIATE DILUENT 1 EA IV (20:57)
[2017-03-10] MEDS: LEVEMIR (INSULIN DETEMIR) 1 UNITS/0.01ML SC (21:01)
[2017-03-10 21:20] LABS: BEDSIDE GLUCOSE 345 MG/DL (80-115)
[2017-03-11] MEDS: OXAZEPAM 10 MG CAP PO ×4 (00:49→17:17)
[2017-03-11] MEDS: FUROSEMIDE 40 MG/4 ML VIAL (J1940) IV ×6 (00:50→19:35)
[2017-03-11] MEDS: IPRATROPIUM 0.5MG/ALBUTEROL 2.5MG INH SOL UD 3ML (DUONEB)(J7620) NEB ×4 (02:00→21:08)
[2017-03-11] MEDS: SLF 3 ML SYR IV ×3 (05:08→20:23)
[2017-03-11 05:09] LABS: BASO % 0.4 % (0.0-1.0); HEMATOCRIT 31.1 % (42.0-52.0); HEMOGLOBIN 9.9 g/dl (14.0-18.0); IMMATURE GRANULOCYTE # 0.1 10^3/uL (0-0); IMMATURE GRANULOCYTE % 0.8 % (0-0); LYMPH # 0.4 10^3/uL (1.5-4.5); LYMPH % 4.1 % (24.0-44.0); MEAN CORPUSCULAR HEMOGLOBIN 27.4 pg (27.0-33.0); MEAN CORPUSCULAR HGB CONC 31.8 g/dl (32.0-36.5); MEAN CORPUSCULAR VOLUME 86.1 fl (80.0-96.0); MONO # 1.2 10^3/uL (0.0-0.8); MONO % 10.8 % (0.0-5.0); NEUTROPHILS # 8.9 10^3/uL (1.8-7.7); NEUTROPHILS % 83.9 % (36.0-66.0); PLATELET COUNT, AUTOMATED 219 10^3/uL (150-450); RED BLOOD COUNT 3.61 10^6/uL (4.30-6.10); RED CELL DISTRIBUTION WIDTH 15.4 % (11.5-14.5); WHITE BLOOD COUNT 10.6 10^3/uL (4.0-10.0)
[2017-03-11 05:28] LABS: ALBUMIN 2.2 GM/DL (3.2-5.2); ALBUMIN/GLOBULIN RATIO 0.47 (1.00-1.93); ALKALINE PHOSPHATASE 94 U/L (45-117); ALT/SGPT 11 U/L (12-78); ANION GAP 10 MEQ/L (8-16); AST/SGOT 17 U/L (7-37); BILIRUBIN,TOTAL 0.8 MG/DL (0.2-1.0); BLOOD UREA NITROGEN 29 MG/DL (7-18); CALCIUM LEVEL 8.6 MG/DL (8.8-10.2); CARBON DIOXIDE LEVEL 31 MEQ/L (21-32); CHLORIDE LEVEL 91 MEQ/L (98-107); CREATININE FOR GFR 1.23 MG/DL (0.70-1.30); GLOMERULAR FILTRATION RATE > 60.0 (>49); GLUCOSE, FASTING 260 MG/DL (80-110); MAGNESIUM LEVEL 1.7 MG/DL (1.8-2.4); POTASSIUM SERUM 3.2 MEQ/L (3.5-5.1); SODIUM LEVEL 132 MEQ/L (136-145); TOTAL PROTEIN 6.9 GM/DL (6.4-8.2)
[2017-03-11 07:14] LABS: APPEARANCE, URINE CLEAR (CLEAR); BACTERIA, URINE AUTO NEGATIVE (NEGATIVE); BILIRUBIN, URINE AUTO NEGATIVE (NEGATIVE); BLOOD, URINE BLOOD NEGATIVE (NEGATIVE); COLOR, URINE YELLOW (YELLOW); GLUCOSE, URINE (UA) AUTO 1+ mg/dL (NEGATIVE); KETONE, URINE AUTO NEGATIVE (NEGATIVE); LEUKOCYTE ESTERASE, URINE AUTO NEGATIVE (NEGATIVE); NITRITE, URINE AUTO NEGATIVE (NEGATIVE); PROTEIN, URINE AUTO NEGATIVE (NEGATIVE); RBC, URINE AUTO 1 /HPF (0-3); SPECIFIC GRAVITY URINE AUTO 1.008 (1.002-1.035); SQUAMOUS EPITHELIAL CELL UR AU 0 /HPF (0-6); UROBILINOGEN, URINE AUTO 0.2 mg/dL (0.0-2.0); WBC, URINE AUTO 0 /HPF (0-3)
[2017-03-11] MEDS: HumaLOG INSULIN (NovoLOG) PER UNIT SC ×4 (08:42→20:21)
[2017-03-11] MEDS: PANTOPRAZOLE 40MG TAB (PROTONIX) PO (08:42)
[2017-03-11] MEDS: DIGOXIN 0.125 MG TAB PO (08:43)
[2017-03-11] MEDS: guaiFENesin ER 600 MG TAB PO ×2 (08:43→20:22)
[2017-03-11] MEDS: FOLIC ACID 1 MG TAB PO (08:43)
[2017-03-11] MEDS: amLODIPine 10 MG TAB PO (08:43)
[2017-03-11] MEDS: METOPROLOL TARTRATE 100 MG TAB PO ×2 (08:43→20:22)
[2017-03-11] MEDS: POTASSIUM CHLORIDE 10 MEQ SR TABLET PO ×3 (08:44→11:32)
[2017-03-11] MEDS: GABAPENTIN 300 MG CAP PO ×2 (08:44→20:22)
[2017-03-11] MEDS: MULTIVITAMINS/MINERALS THERAP 1 TAB PO (08:44)
[2017-03-11] MEDS: MAG SULF 1GM/100ML (MAG RUN) 1 GM in APPROPRIATE DILUENT 1 EA IV (08:44)
[2017-03-11] MEDS: THIAMINE 100 MG TAB PO (08:47)
[2017-03-11] MEDS ORDERED: AZITHROMYCIN 250 MG TAB PO (09:00)
[2017-03-11 11:32] LABS: BEDSIDE GLUCOSE 355 MG/DL (80-115)
[2017-03-11 17:05] LABS: BEDSIDE GLUCOSE 293 MG/DL (80-115)
[2017-03-11] MEDS: RIVAROXABAN 20 MG TAB (XARELTO) PO (17:17)
[2017-03-11] MEDS: VANCOMYCIN HCL 1,000 MG, VIAL MATE ADAPTER 1 EACH in D5W 250 ML IV (17:18)
[2017-03-11] MEDS: DOXYCYCLINE HYCLATE 100 MG in D5W MINI-BAG PLUS 100 ML IV (19:35)
[2017-03-11] MEDS: ACETAMINOPHEN TAB 650MG DOSE (2X325MG) PO (19:39)
[2017-03-11] MEDS: LEVEMIR (INSULIN DETEMIR) 1 UNITS/0.01ML SC (20:22)
[2017-03-11 20:36] LABS: BEDSIDE GLUCOSE 344 MG/DL (80-115)
[2017-03-12] MEDS: OXAZEPAM 10 MG CAP PO ×3 (00:03→17:00)
[2017-03-12] MEDS: FUROSEMIDE 40 MG/4 ML VIAL (J1940) IV ×4 (01:58→12:31)
[2017-03-12] MEDS: IPRATROPIUM 0.5MG/ALBUTEROL 2.5MG INH SOL UD 3ML (DUONEB)(J7620) NEB ×4 (02:00→23:02)
[2017-03-12] MEDS: DOXYCYCLINE HYCLATE 100 MG in D5W MINI-BAG PLUS 100 ML IV ×2 (04:43→16:58)
[2017-03-12 05:44] LABS: BASO # 0.1 10^3/uL (0.0-0.2); BASO % 0.6 % (0.0-1.0); EOS % 0.3 % (0.0-3.0); HEMOGLOBIN 10.1 g/dl (14.0-18.0); IMMATURE GRANULOCYTE # 0.1 10^3/uL (0-0); IMMATURE GRANULOCYTE % 0.5 % (0-0); LYMPH # 0.5 10^3/uL (1.5-4.5); MEAN CORPUSCULAR HEMOGLOBIN 27.3 pg (27.0-33.0); MEAN CORPUSCULAR HGB CONC 31.6 g/dl (32.0-36.5); MEAN CORPUSCULAR VOLUME 86.5 fl (80.0-96.0); MONO # 0.9 10^3/uL (0.0-0.8); MONO % 8.1 % (0.0-5.0); NEUTROPHILS # 9.1 10^3/uL (1.8-7.7); NEUTROPHILS % 85.5 % (36.0-66.0); PLATELET COUNT, AUTOMATED 273 10^3/uL (150-450); RED CELL DISTRIBUTION WIDTH 15.6 % (11.5-14.5); WHITE BLOOD COUNT 10.6 10^3/uL (4.0-10.0)
[2017-03-12] MEDS: VANCOMYCIN HCL 1,000 MG, VIAL MATE ADAPTER 1 EACH in D5W 250 ML IV (05:58)
[2017-03-12] MEDS: SLF 3 ML SYR IV ×3 (05:58→21:53)
[2017-03-12 06:07] LABS: ALKALINE PHOSPHATASE 86 U/L (45-117); ALT/SGPT 12 U/L (12-78); ANION GAP 10 MEQ/L (8-16); AST/SGOT 19 U/L (7-37); BILIRUBIN,TOTAL 0.7 MG/DL (0.2-1.0); BLOOD UREA NITROGEN 37 MG/DL (7-18); CALCIUM LEVEL 8.6 MG/DL (8.8-10.2); CARBON DIOXIDE LEVEL 29 MEQ/L (21-32); CHLORIDE LEVEL 95 MEQ/L (98-107); CREATININE FOR GFR 1.27 MG/DL (0.70-1.30); GLOMERULAR FILTRATION RATE 59.9 (>49); GLUCOSE, FASTING 255 MG/DL (80-110); MAGNESIUM LEVEL 2.3 MG/DL (1.8-2.4); SODIUM LEVEL 134 MEQ/L (136-145)
[2017-03-12] MEDS: GABAPENTIN 300 MG CAP PO ×2 (08:27→21:17)
[2017-03-12] MEDS: HumaLOG INSULIN (NovoLOG) PER UNIT SC ×4 (08:27→21:15)
[2017-03-12] MEDS: POTASSIUM CHLORIDE 10 MEQ SR TABLET PO (08:27)
[2017-03-12] MEDS: FOLIC ACID 1 MG TAB PO (08:28)
[2017-03-12] MEDS: DIGOXIN 0.125 MG TAB PO (08:28)
[2017-03-12] MEDS: PANTOPRAZOLE 40MG TAB (PROTONIX) PO (08:28)
[2017-03-12] MEDS: amLODIPine 10 MG TAB PO (08:28)
[2017-03-12] MEDS: METOPROLOL TARTRATE 100 MG TAB PO ×2 (08:28→21:16)
[2017-03-12] MEDS: MULTIVITAMINS/MINERALS THERAP 1 TAB PO (08:28)
[2017-03-12] MEDS: guaiFENesin ER 600 MG TAB PO ×2 (08:28→21:17)
[2017-03-12] MEDS: predniSONE 20 MG TAB PO (08:31)
[2017-03-12] MEDS: THIAMINE 100 MG TAB PO (08:31)
[2017-03-12 08:46] LABS: URIC ACID 9.6 MG/DL (3.5-7.2)
[2017-03-12 12:10] LABS: BEDSIDE GLUCOSE 293 MG/DL (80-115)
[2017-03-12 14:10] LABS: AMMONIA < 10 uMOL/L (<32)
[2017-03-12 16:14] LABS: ABG BASE EXCESS -1.9 (-2.0-2.0); ABG HCO3 21.9 MEQ/L (22.0-26.0); ABG PARTIAL PRESSURE CO2 33.6 mmHg (35.0-45.0); ABG STANDARD HCO3 22.6 MEQ/L (22.0-26.0); ABG TOTAL CO2 22.9 MEQ/L (23.0-31.0); ABG pH (ARTERIAL) 7.431 UNITS (7.350-7.450)
[2017-03-12] MEDS: RIVAROXABAN 20 MG TAB (XARELTO) PO (17:00)
[2017-03-12 17:13] LABS: BEDSIDE GLUCOSE 391 MG/DL (80-115)
[2017-03-12 21:12] LABS: BEDSIDE GLUCOSE 406 MG/DL (80-115)
[2017-03-12] MEDS: LEVEMIR (INSULIN DETEMIR) 1 UNITS/0.01ML SC (21:15)
[2017-03-13] MEDS: IPRATROPIUM 0.5MG/ALBUTEROL 2.5MG INH SOL UD 3ML (DUONEB)(J7620) NEB ×4 (01:38→20:17)
[2017-03-13] MEDS: DOXYCYCLINE HYCLATE 100 MG in D5W MINI-BAG PLUS 100 ML IV ×2 (05:10→16:27)
[2017-03-13] MEDS: SLF 3 ML SYR IV ×3 (05:11→21:52)
[2017-03-13] MEDS: OXAZEPAM 10 MG CAP PO ×3 (05:42→21:55)
[2017-03-13 07:42] LABS: BASO % 0.2 % (0.0-1.0); HEMOGLOBIN 9.1 g/dl (14.0-18.0); IMMATURE GRANULOCYTE % 0.3 % (0-0); LYMPH # 0.6 10^3/uL (1.5-4.5); MEAN CORPUSCULAR HEMOGLOBIN 27.8 pg (27.0-33.0); MEAN CORPUSCULAR HGB CONC 31.4 g/dl (32.0-36.5); MEAN CORPUSCULAR VOLUME 88.7 fl (80.0-96.0); MONO # 0.6 10^3/uL (0.0-0.8); NEUTROPHILS # 7.9 10^3/uL (1.8-7.7); NEUTROPHILS % 86.5 % (36.0-66.0); PLATELET COUNT, AUTOMATED 309 10^3/uL (150-450); RED BLOOD COUNT 3.27 10^6/uL (4.30-6.10); RED CELL DISTRIBUTION WIDTH 15.5 % (11.5-14.5); WHITE BLOOD COUNT 9.1 10^3/uL (4.0-10.0)
[2017-03-13 07:43] LABS: ALBUMIN/GLOBULIN RATIO 0.39 (1.00-1.93); ALKALINE PHOSPHATASE 99 U/L (45-117); ALT/SGPT 19 U/L (12-78); ANION GAP 11 MEQ/L (8-16); AST/SGOT 29 U/L (7-37); BILIRUBIN,TOTAL 0.4 MG/DL (0.2-1.0); BLOOD UREA NITROGEN 55 MG/DL (7-18); CARBON DIOXIDE LEVEL 27 MEQ/L (21-32); CHLORIDE LEVEL 95 MEQ/L (98-107); CREATININE FOR GFR 1.37 MG/DL (0.70-1.30); GLOMERULAR FILTRATION RATE 54.8 (>49); MAGNESIUM LEVEL 2.6 MG/DL (1.8-2.4); POTASSIUM SERUM 4.2 MEQ/L (3.5-5.1); SODIUM LEVEL 133 MEQ/L (136-145); TOTAL PROTEIN 7.1 GM/DL (6.4-8.2)
[2017-03-13 07:49] LABS: GLUCOSE, FASTING 408 MG/DL (80-110)
[2017-03-13] MEDS: HumaLOG INSULIN (NovoLOG) PER UNIT SC ×4 (08:23→21:50)
[2017-03-13] MEDS: FOLIC ACID 1 MG TAB PO (08:23)
[2017-03-13] MEDS: guaiFENesin ER 600 MG TAB PO ×2 (08:23→21:51)
[2017-03-13] MEDS: PANTOPRAZOLE 40MG TAB (PROTONIX) PO (08:23)
[2017-03-13] MEDS: FUROSEMIDE 40 MG TAB PO (08:23)
[2017-03-13] MEDS: THIAMINE 100 MG TAB PO (08:23)
[2017-03-13] MEDS: METOPROLOL TARTRATE 100 MG TAB PO ×2 (08:25→21:51)
[2017-03-13] MEDS: DIGOXIN 0.125 MG TAB PO (08:25)
[2017-03-13] MEDS: MULTIVITAMINS/MINERALS THERAP 1 TAB PO (08:25)
[2017-03-13] MEDS: GABAPENTIN 300 MG CAP PO ×2 (08:25→21:51)
[2017-03-13] MEDS: predniSONE 20 MG TAB PO (08:26)
[2017-03-13] MEDS: POTASSIUM CHLORIDE 10 MEQ SR TABLET PO (08:26)
[2017-03-13] MEDS: amLODIPine 10 MG TAB PO (08:26)
[2017-03-13 12:30] LABS: BEDSIDE GLUCOSE 365 MG/DL (80-115)
[2017-03-13] MEDS: SENOKOT S TAB PO ×2 (12:45→21:51)
[2017-03-13] MEDS: MOM 30ML SUSPENSION UDC PO (12:46)
[2017-03-13] MEDS: SANTYL OINT 30GM TOP (16:28)
[2017-03-13] MEDS: RIVAROXABAN 20 MG TAB (XARELTO) PO (17:20)
[2017-03-13 21:37] LABS: BEDSIDE GLUCOSE 493 MG/DL (80-115)
[2017-03-13] MEDS: LEVEMIR (INSULIN DETEMIR) 1 UNITS/0.01ML SC (21:51)
[2017-03-14] MEDS: IPRATROPIUM 0.5MG/ALBUTEROL 2.5MG INH SOL UD 3ML (DUONEB)(J7620) NEB ×4 (00:53→20:44)
[2017-03-14] MEDS: DOXYCYCLINE HYCLATE 100 MG in D5W MINI-BAG PLUS 100 ML IV (06:11)
[2017-03-14] MEDS: SLF 3 ML SYR IV ×3 (06:11→21:26)
[2017-03-14 07:03] LABS: BASO % 0.2 % (0.0-1.0); EOS % 0.1 % (0.0-3.0); HEMATOCRIT 30.1 % (42.0-52.0); HEMOGLOBIN 9.5 g/dl (14.0-18.0); IMMATURE GRANULOCYTE # 0.1 10^3/uL (0-0); IMMATURE GRANULOCYTE % 0.6 % (0-0); LYMPH # 0.9 10^3/uL (1.5-4.5); LYMPH % 10.3 % (24.0-44.0); MEAN CORPUSCULAR HEMOGLOBIN 27.4 pg (27.0-33.0); MEAN CORPUSCULAR HGB CONC 31.6 g/dl (32.0-36.5); MEAN CORPUSCULAR VOLUME 86.7 fl (80.0-96.0); MONO # 0.9 10^3/uL (0.0-0.8); MONO % 9.7 % (0.0-5.0); NEUTROPHILS # 7.2 10^3/uL (1.8-7.7); NEUTROPHILS % 79.1 % (36.0-66.0); PLATELET COUNT, AUTOMATED 419 10^3/uL (150-450); RED BLOOD COUNT 3.47 10^6/uL (4.30-6.10); RED CELL DISTRIBUTION WIDTH 15.6 % (11.5-14.5); WHITE BLOOD COUNT 9.1 10^3/uL (4.0-10.0)
[2017-03-14 07:19] LABS: ALBUMIN 2.2 GM/DL (3.2-5.2); ALBUMIN/GLOBULIN RATIO 0.44 (1.00-1.93); ALKALINE PHOSPHATASE 105 U/L (45-117); ALT/SGPT 31 U/L (12-78); ANION GAP 10 MEQ/L (8-16); AST/SGOT 44 U/L (7-37); BILIRUBIN,TOTAL 0.3 MG/DL (0.2-1.0); BLOOD UREA NITROGEN 59 MG/DL (7-18); CALCIUM LEVEL 9.1 MG/DL (8.8-10.2); CARBON DIOXIDE LEVEL 28 MEQ/L (21-32); CHLORIDE LEVEL 100 MEQ/L (98-107); CREATININE FOR GFR 1.21 MG/DL (0.70-1.30); GLOMERULAR FILTRATION RATE > 60.0 (>49); GLUCOSE, FASTING 312 MG/DL (80-110); MAGNESIUM LEVEL 2.6 MG/DL (1.8-2.4); POTASSIUM SERUM 3.9 MEQ/L (3.5-5.1); SODIUM LEVEL 138 MEQ/L (136-145); TOTAL PROTEIN 7.2 GM/DL (6.4-8.2)
[2017-03-14] MEDS: HumaLOG INSULIN (NovoLOG) PER UNIT SC ×4 (08:53→21:24)
[2017-03-14] MEDS: SENOKOT S TAB PO ×2 (08:54→21:25)
[2017-03-14] MEDS: POTASSIUM CHLORIDE 10 MEQ SR TABLET PO (08:54)
[2017-03-14] MEDS: FUROSEMIDE 40 MG TAB PO (08:54)
[2017-03-14] MEDS: THIAMINE 100 MG TAB PO (08:54)
[2017-03-14] MEDS: GABAPENTIN 300 MG CAP PO ×2 (08:54→21:26)
[2017-03-14] MEDS: DIGOXIN 0.125 MG TAB PO (08:54)
[2017-03-14] MEDS: predniSONE 20 MG TAB PO (08:54)
[2017-03-14] MEDS: MULTIVITAMINS/MINERALS THERAP 1 TAB PO (08:54)
[2017-03-14] MEDS: FOLIC ACID 1 MG TAB PO (08:54)
[2017-03-14] MEDS: amLODIPine 10 MG TAB PO (08:55)
[2017-03-14] MEDS: PANTOPRAZOLE 40MG TAB (PROTONIX) PO (08:55)
[2017-03-14] MEDS: guaiFENesin ER 600 MG TAB PO ×2 (08:55→21:26)
[2017-03-14] MEDS: METOPROLOL TARTRATE 100 MG TAB PO ×2 (08:55→21:25)
[2017-03-14] MEDS: SANTYL OINT 30GM TOP (09:00)
[2017-03-14 11:57] LABS: BEDSIDE GLUCOSE 293 MG/DL (80-115)
[2017-03-14] MEDS: RIVAROXABAN 20 MG TAB (XARELTO) PO (17:05)
[2017-03-14 17:42] LABS: BEDSIDE GLUCOSE 454 MG/DL (80-115)
[2017-03-14 20:47] LABS: BEDSIDE GLUCOSE 467 MG/DL (80-115)
[2017-03-14] MEDS: LEVEMIR (INSULIN DETEMIR) 1 UNITS/0.01ML SC (21:25)
[2017-03-15] MEDS: IPRATROPIUM 0.5MG/ALBUTEROL 2.5MG INH SOL UD 3ML (DUONEB)(J7620) NEB ×4 (02:00→21:29)
[2017-03-15] MEDS: SLF 3 ML SYR IV ×3 (05:32→22:00)
[2017-03-15 06:58] LABS: BASO % 0.4 % (0.0-1.0); EOS % 0.4 % (0.0-3.0); HEMATOCRIT 30.5 % (42.0-52.0); HEMOGLOBIN 9.5 g/dl (14.0-18.0); IMMATURE GRANULOCYTE # 0.1 10^3/uL (0-0); IMMATURE GRANULOCYTE % 0.8 % (0-0); LYMPH # 1.1 10^3/uL (1.5-4.5); LYMPH % 13.5 % (24.0-44.0); MEAN CORPUSCULAR HEMOGLOBIN 27.3 pg (27.0-33.0); MEAN CORPUSCULAR HGB CONC 31.1 g/dl (32.0-36.5); MEAN CORPUSCULAR VOLUME 87.6 fl (80.0-96.0); MONO # 0.7 10^3/uL (0.0-0.8); MONO % 8.2 % (0.0-5.0); NEUTROPHILS # 6.5 10^3/uL (1.8-7.7); NEUTROPHILS % 76.7 % (36.0-66.0); PLATELET COUNT, AUTOMATED 448 10^3/uL (150-450); RED BLOOD COUNT 3.48 10^6/uL (4.30-6.10); RED CELL DISTRIBUTION WIDTH 15.7 % (11.5-14.5); WHITE BLOOD COUNT 8.4 10^3/uL (4.0-10.0)
[2017-03-15 07:15] LABS: ALBUMIN 2.2 GM/DL (3.2-5.2); ALBUMIN/GLOBULIN RATIO 0.48 (1.00-1.93); ALKALINE PHOSPHATASE 97 U/L (45-117); ALT/SGPT 26 U/L (12-78); ANION GAP 7 MEQ/L (8-16); AST/SGOT 31 U/L (7-37); BILIRUBIN,TOTAL 0.3 MG/DL (0.2-1.0); BLOOD UREA NITROGEN 46 MG/DL (7-18); CALCIUM LEVEL 9.1 MG/DL (8.8-10.2); CARBON DIOXIDE LEVEL 30 MEQ/L (21-32); CHLORIDE LEVEL 105 MEQ/L (98-107); CREATININE FOR GFR 1.06 MG/DL (0.70-1.30); GLOMERULAR FILTRATION RATE > 60.0 (>49); GLUCOSE, FASTING 167 MG/DL (80-110); MAGNESIUM LEVEL 2.4 MG/DL (1.8-2.4); POTASSIUM SERUM 3.7 MEQ/L (3.5-5.1); SODIUM LEVEL 142 MEQ/L (136-145); TOTAL PROTEIN 6.8 GM/DL (6.4-8.2)
[2017-03-15] MEDS: METOPROLOL TARTRATE 100 MG TAB PO ×2 (08:18→22:24)
[2017-03-15] MEDS: GABAPENTIN 300 MG CAP PO ×2 (08:18→22:23)
[2017-03-15] MEDS: POTASSIUM CHLORIDE 10 MEQ SR TABLET PO (08:18)
[2017-03-15] MEDS: SENOKOT S TAB PO ×2 (08:18→22:24)
[2017-03-15] MEDS: HumaLOG INSULIN (NovoLOG) PER UNIT SC ×4 (08:18→22:22)
[2017-03-15] MEDS: PANTOPRAZOLE 40MG TAB (PROTONIX) PO (08:18)
[2017-03-15] MEDS: MULTIVITAMINS/MINERALS THERAP 1 TAB PO (08:19)
[2017-03-15] MEDS: amLODIPine 10 MG TAB PO (08:19)
[2017-03-15] MEDS: SANTYL OINT 30GM TOP (08:19)
[2017-03-15] MEDS: DIGOXIN 0.125 MG TAB PO (08:19)
[2017-03-15] MEDS: THIAMINE 100 MG TAB PO (08:19)
[2017-03-15] MEDS: FUROSEMIDE 40 MG TAB PO (08:19)
[2017-03-15] MEDS: predniSONE 20 MG TAB PO (08:19)
[2017-03-15] MEDS: guaiFENesin ER 600 MG TAB PO ×2 (08:19→22:23)
[2017-03-15] MEDS: FOLIC ACID 1 MG TAB PO (08:19)
[2017-03-15 12:51] LABS: BEDSIDE GLUCOSE 146 MG/DL (80-115)
[2017-03-15] MEDS: ACETAMINOPHEN TAB 650MG DOSE (2X325MG) PO ×2 (12:57→18:01)
[2017-03-15 15:38] LABS: BEDSIDE GLUCOSE 445 MG/DL (80-115)
[2017-03-15 15:38] LABS: BEDSIDE GLUCOSE 454 MG/DL (80-115)
[2017-03-15 17:51] LABS: BEDSIDE GLUCOSE 341 MG/DL (80-115)
[2017-03-15] MEDS: RIVAROXABAN 20 MG TAB (XARELTO) PO (18:00)
[2017-03-15 20:57] LABS: BEDSIDE GLUCOSE 382 MG/DL (80-115)
[2017-03-15] MEDS: LEVEMIR (INSULIN DETEMIR) 1 UNITS/0.01ML SC (22:23)
[2017-03-16] MEDS: IPRATROPIUM 0.5MG/ALBUTEROL 2.5MG INH SOL UD 3ML (DUONEB)(J7620) NEB ×4 (00:14→19:34)
[2017-03-16] MEDS: SLF 3 ML SYR IV ×4 (05:42→21:53)
[2017-03-16 06:27] LABS: BASO % 0.1 % (0.0-1.0); EOS % 0.4 % (0.0-3.0); HEMATOCRIT 31.9 % (42.0-52.0); HEMOGLOBIN 9.9 g/dl (14.0-18.0); IMMATURE GRANULOCYTE # 0.2 10^3/uL (0-0); IMMATURE GRANULOCYTE % 1.4 % (0-0); LYMPH # 1.2 10^3/uL (1.5-4.5); LYMPH % 11.2 % (24.0-44.0); MEAN CORPUSCULAR HEMOGLOBIN 27.1 pg (27.0-33.0); MEAN CORPUSCULAR VOLUME 87.4 fl (80.0-96.0); MONO # 0.9 10^3/uL (0.0-0.8); MONO % 8.3 % (0.0-5.0); NEUTROPHILS # 8.4 10^3/uL (1.8-7.7); NEUTROPHILS % 78.6 % (36.0-66.0); PLATELET COUNT, AUTOMATED 526 10^3/uL (150-450); RED BLOOD COUNT 3.65 10^6/uL (4.30-6.10); RED CELL DISTRIBUTION WIDTH 15.6 % (11.5-14.5); WHITE BLOOD COUNT 10.6 10^3/uL (4.0-10.0)
[2017-03-16 06:57] LABS: ALBUMIN 2.4 GM/DL (3.2-5.2); ALBUMIN/GLOBULIN RATIO 0.52 (1.00-1.93); ALKALINE PHOSPHATASE 107 U/L (45-117); ALT/SGPT 29 U/L (12-78); ANION GAP 8 MEQ/L (8-16); AST/SGOT 22 U/L (7-37); BILIRUBIN,TOTAL 0.3 MG/DL (0.2-1.0); BLOOD UREA NITROGEN 44 MG/DL (7-18); CALCIUM LEVEL 8.8 MG/DL (8.8-10.2); CARBON DIOXIDE LEVEL 26 MEQ/L (21-32); CHLORIDE LEVEL 104 MEQ/L (98-107); CREATININE FOR GFR 1.13 MG/DL (0.70-1.30); GLOMERULAR FILTRATION RATE > 60.0 (>49); GLUCOSE, FASTING 219 MG/DL (80-110); MAGNESIUM LEVEL 2.3 MG/DL (1.8-2.4); POTASSIUM SERUM 3.9 MEQ/L (3.5-5.1); SODIUM LEVEL 138 MEQ/L (136-145)
[2017-03-16] MEDS: MULTIVITAMINS/MINERALS THERAP 1 TAB PO (08:16)
[2017-03-16] MEDS: HumaLOG INSULIN (NovoLOG) PER UNIT SC ×4 (08:16→21:49)
[2017-03-16] MEDS: THIAMINE 100 MG TAB PO (08:16)
[2017-03-16] MEDS: guaiFENesin ER 600 MG TAB PO ×2 (08:17→21:44)
[2017-03-16] MEDS: ACETAMINOPHEN TAB 650MG DOSE (2X325MG) PO (08:17)
[2017-03-16] MEDS: FOLIC ACID 1 MG TAB PO (08:17)
[2017-03-16] MEDS: METOPROLOL TARTRATE 100 MG TAB PO ×2 (08:17→21:48)
[2017-03-16] MEDS: PANTOPRAZOLE 40MG TAB (PROTONIX) PO (08:17)
[2017-03-16] MEDS: amLODIPine 10 MG TAB PO (08:17)
[2017-03-16] MEDS: SENOKOT S TAB PO ×2 (08:17→21:45)
[2017-03-16] MEDS: GABAPENTIN 300 MG CAP PO ×2 (08:18→21:44)
[2017-03-16] MEDS: FUROSEMIDE 40 MG TAB PO (08:18)
[2017-03-16] MEDS: POTASSIUM CHLORIDE 10 MEQ SR TABLET PO (08:18)
[2017-03-16] MEDS: DIGOXIN 0.125 MG TAB PO (08:18)
[2017-03-16] MEDS: predniSONE 10 MG TAB PO (08:18)
[2017-03-16] MEDS: SANTYL OINT 30GM TOP (09:05)
[2017-03-16 11:53] LABS: BEDSIDE GLUCOSE 233 MG/DL (80-115)
[2017-03-16 14:18] LABS: BEDSIDE GLUCOSE 220 MG/DL (80-115)
[2017-03-16 17:42] LABS: BEDSIDE GLUCOSE 338 MG/DL (80-115)
[2017-03-16] MEDS: RIVAROXABAN 20 MG TAB (XARELTO) PO (17:59)
[2017-03-16 20:34] LABS: BEDSIDE GLUCOSE 380 MG/DL (80-115)
[2017-03-16] MEDS: LEVEMIR (INSULIN DETEMIR) 1 UNITS/0.01ML SC (21:50)
[2017-03-17] MEDS: IPRATROPIUM 0.5MG/ALBUTEROL 2.5MG INH SOL UD 3ML (DUONEB)(J7620) NEB ×4 (02:00→22:29)
[2017-03-17] MEDS: SLF 3 ML SYR IV ×3 (05:20→21:14)
[2017-03-17 07:40] LABS: BASO % 0.2 % (0.0-1.0); EOS # 0.1 10^3/uL (0.0-0.50); EOS % 1.4 % (0.0-3.0); HEMATOCRIT 31.4 % (42.0-52.0); HEMOGLOBIN 9.7 g/dl (14.0-18.0); IMMATURE GRANULOCYTE # 0.2 10^3/uL (0-0); IMMATURE GRANULOCYTE % 1.7 % (0-0); LYMPH # 1.3 10^3/uL (1.5-4.5); LYMPH % 13.3 % (24.0-44.0); MEAN CORPUSCULAR HEMOGLOBIN 27.1 pg (27.0-33.0); MEAN CORPUSCULAR HGB CONC 30.9 g/dl (32.0-36.5); MEAN CORPUSCULAR VOLUME 87.7 fl (80.0-96.0); MONO # 0.8 10^3/uL (0.0-0.8); MONO % 8.1 % (0.0-5.0); NEUTROPHILS # 7.3 10^3/uL (1.8-7.7); NEUTROPHILS % 75.3 % (36.0-66.0); PLATELET COUNT, AUTOMATED 492 10^3/uL (150-450); RED BLOOD COUNT 3.58 10^6/uL (4.30-6.10); RED CELL DISTRIBUTION WIDTH 15.3 % (11.5-14.5); WHITE BLOOD COUNT 9.7 10^3/uL (4.0-10.0)
[2017-03-17 08:02] LABS: ALBUMIN 2.2 GM/DL (3.2-5.2); ALKALINE PHOSPHATASE 85 U/L (45-117); ALT/SGPT 21 U/L (12-78); ANION GAP 5 MEQ/L (8-16); AST/SGOT 15 U/L (7-37); BILIRUBIN,TOTAL 0.3 MG/DL (0.2-1.0); BLOOD UREA NITROGEN 35 MG/DL (7-18); CALCIUM LEVEL 8.6 MG/DL (8.8-10.2); CARBON DIOXIDE LEVEL 30 MEQ/L (21-32); CHLORIDE LEVEL 103 MEQ/L (98-107); CREATININE FOR GFR 0.93 MG/DL (0.70-1.30); GLOMERULAR FILTRATION RATE > 60.0 (>49); GLUCOSE, FASTING 111 MG/DL (80-110); MAGNESIUM LEVEL 2.2 MG/DL (1.8-2.4); POTASSIUM SERUM 3.5 MEQ/L (3.5-5.1); SODIUM LEVEL 138 MEQ/L (136-145); TOTAL PROTEIN 6.6 GM/DL (6.4-8.2)
[2017-03-17] MEDS: METOPROLOL TARTRATE 100 MG TAB PO ×2 (08:27→21:14)
[2017-03-17] MEDS: FOLIC ACID 1 MG TAB PO (08:27)
[2017-03-17] MEDS: GABAPENTIN 300 MG CAP PO ×2 (08:27→21:13)
[2017-03-17] MEDS: THIAMINE 100 MG TAB PO (08:27)
[2017-03-17] MEDS: HumaLOG INSULIN (NovoLOG) PER UNIT SC ×4 (08:27→21:12)
[2017-03-17] MEDS: MULTIVITAMINS/MINERALS THERAP 1 TAB PO (08:28)
[2017-03-17] MEDS: POTASSIUM CHLORIDE 10 MEQ SR TABLET PO (08:28)
[2017-03-17] MEDS: PANTOPRAZOLE 40MG TAB (PROTONIX) PO (08:28)
[2017-03-17] MEDS: predniSONE 20 MG TAB PO (08:28)
[2017-03-17] MEDS: DIGOXIN 0.125 MG TAB PO (08:28)
[2017-03-17] MEDS: amLODIPine 10 MG TAB PO (08:29)
[2017-03-17] MEDS: FUROSEMIDE 40 MG TAB PO (08:29)
[2017-03-17] MEDS: SANTYL OINT 30GM TOP (08:29)
[2017-03-17] MEDS: SENOKOT S TAB PO ×2 (08:29→21:14)
[2017-03-17] MEDS: guaiFENesin ER 600 MG TAB PO ×2 (08:29→21:14)
[2017-03-17 12:55] LABS: BEDSIDE GLUCOSE 180 MG/DL (80-115)
[2017-03-17 17:10] LABS: BEDSIDE GLUCOSE 359 MG/DL (80-115)
[2017-03-17] MEDS: RIVAROXABAN 20 MG TAB (XARELTO) PO (17:44)
[2017-03-17 20:40] LABS: BEDSIDE GLUCOSE 405 MG/DL (80-115)
[2017-03-17] MEDS: LEVEMIR (INSULIN DETEMIR) 1 UNITS/0.01ML SC (21:12)
[2017-03-18] MEDS: IPRATROPIUM 0.5MG/ALBUTEROL 2.5MG INH SOL UD 3ML (DUONEB)(J7620) NEB ×4 (02:00→20:26)
[2017-03-18] MEDS: SLF 3 ML SYR IV ×2 (06:00→14:07)
[2017-03-18 06:20] LABS: BEDSIDE GLUCOSE 101 MG/DL (80-115)
[2017-03-18] MEDS: amLODIPine 10 MG TAB PO (09:18)
[2017-03-18] MEDS: SENOKOT S TAB PO ×2 (09:18→21:10)
[2017-03-18] MEDS: GABAPENTIN 300 MG CAP PO ×2 (09:19→21:10)
[2017-03-18] MEDS: PANTOPRAZOLE 40MG TAB (PROTONIX) PO (09:20)
[2017-03-18] MEDS: ACETAMINOPHEN TAB 650MG DOSE (2X325MG) PO (09:20)
[2017-03-18] MEDS: MULTIVITAMINS/MINERALS THERAP 1 TAB PO (09:20)
[2017-03-18] MEDS: guaiFENesin ER 600 MG TAB PO ×2 (09:21→21:10)
[2017-03-18] MEDS: THIAMINE 100 MG TAB PO (09:21)
[2017-03-18] MEDS: FUROSEMIDE 40 MG TAB PO (09:21)
[2017-03-18] MEDS: predniSONE 20 MG TAB PO (09:21)
[2017-03-18] MEDS: FOLIC ACID 1 MG TAB PO (09:21)
[2017-03-18] MEDS: POTASSIUM CHLORIDE 10 MEQ SR TABLET PO (09:21)
[2017-03-18] MEDS: HumaLOG INSULIN (NovoLOG) PER UNIT SC ×4 (09:22→21:09)
[2017-03-18] MEDS: DIGOXIN 0.125 MG TAB PO (09:23)
[2017-03-18] MEDS: METOPROLOL TARTRATE 100 MG TAB PO ×2 (09:23→21:10)
[2017-03-18] MEDS: SANTYL OINT 30GM TOP (09:23)
[2017-03-18 12:03] LABS: BEDSIDE GLUCOSE 200 MG/DL (80-115)
[2017-03-18] MEDS: RIVAROXABAN 20 MG TAB (XARELTO) PO (17:44)
[2017-03-18] MEDS: LEVEMIR (INSULIN DETEMIR) 1 UNITS/0.01ML SC (21:00)
[2017-03-19] MEDS: IPRATROPIUM 0.5MG/ALBUTEROL 2.5MG INH SOL UD 3ML (DUONEB)(J7620) NEB ×4 (01:46→20:55)
[2017-03-19] MEDS: HumaLOG INSULIN (NovoLOG) PER UNIT SC ×4 (07:30→21:34)
[2017-03-19] MEDS: amLODIPine 10 MG TAB PO (09:06)
[2017-03-19] MEDS: GABAPENTIN 300 MG CAP PO ×2 (09:06→21:34)
[2017-03-19] MEDS: MULTIVITAMINS/MINERALS THERAP 1 TAB PO (09:06)
[2017-03-19] MEDS: POTASSIUM CHLORIDE 10 MEQ SR TABLET PO (09:06)
[2017-03-19] MEDS: ACETAMINOPHEN TAB 650MG DOSE (2X325MG) PO (09:06)
[2017-03-19] MEDS: PANTOPRAZOLE 40MG TAB (PROTONIX) PO (09:06)
[2017-03-19] MEDS: FOLIC ACID 1 MG TAB PO (09:06)
[2017-03-19] MEDS: FUROSEMIDE 40 MG TAB PO (09:07)
[2017-03-19] MEDS: DIGOXIN 0.125 MG TAB PO (09:07)
[2017-03-19] MEDS: SENOKOT S TAB PO ×2 (09:07→21:34)
[2017-03-19] MEDS: THIAMINE 100 MG TAB PO (09:07)
[2017-03-19] MEDS: METOPROLOL TARTRATE 100 MG TAB PO ×2 (09:07→21:00)
[2017-03-19] MEDS: predniSONE 20 MG TAB PO (09:07)
[2017-03-19] MEDS: guaiFENesin ER 600 MG TAB PO ×2 (09:07→21:34)
[2017-03-19] MEDS: SANTYL OINT 30GM TOP (09:08)
[2017-03-19 12:32] LABS: BEDSIDE GLUCOSE 234 MG/DL (80-115)
[2017-03-19] MEDS: RIVAROXABAN 20 MG TAB (XARELTO) PO (17:58)
[2017-03-19 18:08] LABS: BEDSIDE GLUCOSE 373 MG/DL (80-115)
[2017-03-19 20:24] LABS: BEDSIDE GLUCOSE 329 MG/DL (80-115)
[2017-03-19 20:24] LABS: BEDSIDE GLUCOSE 337 MG/DL (80-115)
[2017-03-19 20:25] LABS: BEDSIDE GLUCOSE 138 MG/DL (80-115)
[2017-03-19] MEDS: LEVEMIR (INSULIN DETEMIR) 1 UNITS/0.01ML SC (21:33)
[2017-03-20] MEDS: IPRATROPIUM 0.5MG/ALBUTEROL 2.5MG INH SOL UD 3ML (DUONEB)(J7620) NEB ×2 (02:00→08:45)
[2017-03-20 02:52] LABS: BEDSIDE GLUCOSE 340 MG/DL (80-115)
[2017-03-20 07:05] LABS: HEMATOCRIT 30.9 % (42.0-52.0); HEMOGLOBIN 9.7 g/dl (14.0-18.0); MEAN CORPUSCULAR HEMOGLOBIN 27.3 pg (27.0-33.0); MEAN CORPUSCULAR HGB CONC 31.4 g/dl (32.0-36.5); PLATELET COUNT, AUTOMATED 481 10^3/uL (150-450); RED BLOOD COUNT 3.55 10^6/uL (4.30-6.10); RED CELL DISTRIBUTION WIDTH 15.3 % (11.5-14.5); WHITE BLOOD COUNT 9.9 10^3/uL (4.0-10.0)
[2017-03-20] MEDS: HumaLOG INSULIN (NovoLOG) PER UNIT SC ×2 (07:30→12:32)
[2017-03-20 07:36] LABS: ANION GAP 7 MEQ/L (8-16); BLOOD UREA NITROGEN 27 MG/DL (7-18); CALCIUM LEVEL 8.4 MG/DL (8.8-10.2); CARBON DIOXIDE LEVEL 26 MEQ/L (21-32); CHLORIDE LEVEL 107 MEQ/L (98-107); CREATININE FOR GFR 0.97 MG/DL (0.70-1.30); GLOMERULAR FILTRATION RATE > 60.0 (>49); GLUCOSE, FASTING 76 MG/DL (80-110); POTASSIUM SERUM 3.6 MEQ/L (3.5-5.1); SODIUM LEVEL 140 MEQ/L (136-145)
[2017-03-20] MEDS: SENOKOT S TAB PO (09:42)
[2017-03-20] MEDS: FOLIC ACID 1 MG TAB PO (09:42)
[2017-03-20] MEDS: POTASSIUM CHLORIDE 10 MEQ SR TABLET PO (09:43)
[2017-03-20] MEDS: amLODIPine 10 MG TAB PO (09:43)
[2017-03-20] MEDS: MULTIVITAMINS/MINERALS THERAP 1 TAB PO (09:43)
[2017-03-20] MEDS: DIGOXIN 0.125 MG TAB PO (09:43)
[2017-03-20] MEDS: THIAMINE 100 MG TAB PO (09:43)
[2017-03-20] MEDS: guaiFENesin ER 600 MG TAB PO (09:43)
[2017-03-20] MEDS: GABAPENTIN 300 MG CAP PO (09:43)
[2017-03-20] MEDS: PANTOPRAZOLE 40MG TAB (PROTONIX) PO (09:44)
[2017-03-20] MEDS: METOPROLOL TARTRATE 100 MG TAB PO (09:44)
[2017-03-20] MEDS: SANTYL OINT 30GM TOP (09:44)
[2017-03-20] MEDS: ACETAMINOPHEN TAB 650MG DOSE (2X325MG) PO (09:44)
[2017-03-20] MEDS: predniSONE 5 MG TAB PO (09:44)
[2017-03-20] MEDS: FUROSEMIDE 40 MG TAB PO (09:45)
[2017-03-21 02:10] LABS: BEDSIDE GLUCOSE 256 MG/DL (80-115)
== END 2017-03-20 14:30 | DRG 291 ==
LOC: M PCU 03-07 16:18 → M MS5PR 03-12 19:02 → M ED 10:44 → M ED INP 16:10 → M PCU 18:12
PROC: 0HCNXZZ Extirpation of Matter from Left Foot Skin, External Approach (ICD-10-PCS; principal; 2017-03-13)
DX: I11.0 Hypertensive heart disease with heart failure (principal); J18.9 Pneumonia, unspecified organism; J96.01 Acute respiratory failure with hypoxia; I63.9 Cerebral infarction, unspecified; L03.114 Cellulitis of left upper limb; I16.1 Hypertensive emergency; I50.33 Acute on chronic diastolic (congestive) heart failure; I48.2 Chronic atrial fibrillation; K21.9 Gastro-esophageal reflux disease without esophagitis; E87.6 Hypokalemia; E78.5 Hyperlipidemia, unspecified; M1A.9XX1 Chronic gout, unspecified, with tophus (tophi); E83.42 Hypomagnesemia; M54.9 Dorsalgia, unspecified; F10.20 Alcohol dependence, uncomplicated; G47.33 Obstructive sleep apnea (adult) (pediatric); E11.40 Type 2 diabetes mellitus with diabetic neuropathy, unspecified; Z95.3 Presence of xenogenic heart valve; Z86.718 Personal history of other venous thrombosis and embolism; Z99.89 Dependence on other enabling machines and devices; Z98.52 Vasectomy status; Z85.46 Personal history of malignant neoplasm of prostate; Z98.1 Arthrodesis status; Z79.4 Long term (current) use of insulin; Z79.01 Long term (current) use of anticoagulants; Z79.899 Other long term (current) drug therapy

== ENCOUNTER 2017-03-20 14:35 | Inpatient (IN) | payer MEDICARE ==
[2017-03-20] MEDS: IPRATROPIUM 0.5MG/ALBUTEROL 2.5MG INH SOL UD 3ML (DUONEB)(J7620) NEB ×3 (14:00→20:42)
[~2017-03-20 14:35] MED LIST changes: -AMOX500C; -DIGO0.12 PO; -FURO20TA2 PO; -GABA-282 PO; +GLUCAGON FOR INJ 1 MG VIAL (J1610) SC; +GLUCOSE 4 GM CHEW TABLET PO; -INSUR; -LEVE1INJ5; -LOPR1TAB6 PO; +MOM 30ML SUSPENSION UDC PO; -ONETTES6; -PANT40TA2 PO; -POTA1TAB23 PO; -PRED10TA2; -XARE20TA PO
[2017-03-20 16:31] LABS: BEDSIDE GLUCOSE 290 MG/DL (80-115)
[2017-03-20] MEDS: HumaLOG INSULIN (NovoLOG) PER UNIT SC ×2 (17:15→22:13)
[2017-03-20] MEDS: RIVAROXABAN 20 MG TAB (XARELTO) PO (17:35)
[2017-03-20 19:41] LABS: APPEARANCE, URINE CLEAR (CLEAR); BACTERIA, URINE AUTO NEGATIVE (NEGATIVE); BILIRUBIN, URINE AUTO NEGATIVE (NEGATIVE); BLOOD, URINE BLOOD 1+ (NEGATIVE); COLOR, URINE YELLOW (YELLOW); GLUCOSE, URINE (UA) AUTO 3+ mg/dL (NEGATIVE); KETONE, URINE AUTO NEGATIVE (NEGATIVE); LEUKOCYTE ESTERASE, URINE AUTO NEGATIVE (NEGATIVE); MUCUS, URINE SMALL (NEGATIVE); NITRITE, URINE AUTO NEGATIVE (NEGATIVE); PROTEIN, URINE AUTO NEGATIVE (NEGATIVE); RBC, URINE AUTO 5 /HPF (0-3); SPECIFIC GRAVITY URINE AUTO 1.009 (1.002-1.035); SQUAMOUS EPITHELIAL CELL UR AU 0 /HPF (0-6); UROBILINOGEN, URINE AUTO 0.2 mg/dL (0.0-2.0); WBC, URINE AUTO 1 /HPF (0-3)
[2017-03-20 20:33] LABS: BEDSIDE GLUCOSE 354 MG/DL (80-115)
[2017-03-20] MEDS ORDERED: LEVEMIR (INSULIN DETEMIR) 1 UNITS/0.01ML SC (21:00)
[2017-03-20] MEDS: METOPROLOL TARTRATE 100 MG TAB PO (22:10)
[2017-03-20] MEDS: guaiFENesin ER 600 MG TAB PO (22:10)
[2017-03-20] MEDS: SENOKOT S TAB PO (22:11)
[2017-03-20] MEDS: GABAPENTIN 300 MG CAP PO (22:11)
[2017-03-20] MEDS: LEVEMIR (INSULIN DETEMIR) 1 UNITS/0.01ML SC (22:12)
[2017-03-21] MEDS: IPRATROPIUM 0.5MG/ALBUTEROL 2.5MG INH SOL UD 3ML (DUONEB)(J7620) NEB ×4 (02:00→19:44)
[2017-03-21 06:49] LABS: BEDSIDE GLUCOSE 109 MG/DL (80-115)
[2017-03-21 07:29] LABS: BASO % 0.2 % (0.0-1.0); EOS # 0.1 10^3/uL (0.0-0.50); EOS % 1.2 % (0.0-3.0); HEMATOCRIT 30.1 % (42.0-52.0); HEMOGLOBIN 9.2 g/dl (14.0-18.0); IMMATURE GRANULOCYTE # 0.2 10^3/uL (0-0); IMMATURE GRANULOCYTE % 1.5 % (0-0); LYMPH # 1.2 10^3/uL (1.5-4.5); LYMPH % 12.1 % (24.0-44.0); MEAN CORPUSCULAR HEMOGLOBIN 26.4 pg (27.0-33.0); MEAN CORPUSCULAR HGB CONC 30.6 g/dl (32.0-36.5); MEAN CORPUSCULAR VOLUME 86.5 fl (80.0-96.0); MONO # 0.7 10^3/uL (0.0-0.8); MONO % 7.1 % (0.0-5.0); NEUTROPHILS # 7.9 10^3/uL (1.8-7.7); NEUTROPHILS % 77.9 % (36.0-66.0); PLATELET COUNT, AUTOMATED 300 10^3/uL (150-450); RED BLOOD COUNT 3.48 10^6/uL (4.30-6.10); RED CELL DISTRIBUTION WIDTH 15.5 % (11.5-14.5); WHITE BLOOD COUNT 10.2 10^3/uL (4.0-10.0)
[2017-03-21] MEDS: HumaLOG INSULIN (NovoLOG) PER UNIT SC ×4 (07:30→21:13)
[2017-03-21 07:54] LABS: ALBUMIN 2.3 GM/DL (3.2-5.2); ALBUMIN/GLOBULIN RATIO 0.58 (1.00-1.93); ALKALINE PHOSPHATASE 79 U/L (45-117); ALT/SGPT 15 U/L (12-78); ANION GAP 7 MEQ/L (8-16); AST/SGOT 14 U/L (7-37); BILIRUBIN,TOTAL 0.4 MG/DL (0.2-1.0); BLOOD UREA NITROGEN 23 MG/DL (7-18); CALCIUM LEVEL 8.2 MG/DL (8.8-10.2); CARBON DIOXIDE LEVEL 25 MEQ/L (21-32); CHLORIDE LEVEL 108 MEQ/L (98-107); CREATININE FOR GFR 0.88 MG/DL (0.70-1.30); GLOMERULAR FILTRATION RATE > 60.0 (>49); GLUCOSE, FASTING 109 MG/DL (80-110); POTASSIUM SERUM 3.6 MEQ/L (3.5-5.1); SODIUM LEVEL 140 MEQ/L (136-145); TOTAL PROTEIN 6.3 GM/DL (6.4-8.2)
[2017-03-21] MEDS: guaiFENesin ER 600 MG TAB PO ×2 (08:38→21:11)
[2017-03-21] MEDS: THIAMINE 100 MG TAB PO (08:38)
[2017-03-21] MEDS: POTASSIUM CHLORIDE 10 MEQ SR TABLET PO (08:38)
[2017-03-21] MEDS: DIGOXIN 0.125 MG TAB PO (08:39)
[2017-03-21] MEDS: predniSONE 5 MG TAB PO (08:39)
[2017-03-21] MEDS: MULTIVITAMINS/MINERALS THERAP 1 TAB PO (08:39)
[2017-03-21] MEDS: GABAPENTIN 300 MG CAP PO ×2 (08:39→21:11)
[2017-03-21] MEDS: SENOKOT S TAB PO ×2 (08:39→21:11)
[2017-03-21] MEDS: FOLIC ACID 1 MG TAB PO (08:39)
[2017-03-21] MEDS: amLODIPine 10 MG TAB PO (08:39)
[2017-03-21] MEDS: PANTOPRAZOLE 40MG TAB (PROTONIX) PO (08:40)
[2017-03-21] MEDS: METOPROLOL TARTRATE 100 MG TAB PO ×2 (08:40→21:11)
[2017-03-21] MEDS: ACETAMINOPHEN TAB 650MG DOSE (2X325MG) PO (08:40)
[2017-03-21] MEDS: FUROSEMIDE 40 MG TAB PO (08:41)
[2017-03-21] MEDS: SANTYL OINT 30GM TOP (08:44)
[2017-03-21] MEDS ORDERED: DIGOXIN INJ 0.5 MG/2 ML AMP (J1160) IV (09:00)
[2017-03-21 11:42] LABS: BEDSIDE GLUCOSE 262 MG/DL (80-115)
[2017-03-21 16:45] LABS: BEDSIDE GLUCOSE 281 MG/DL (80-115)
[2017-03-21] MEDS: ANALGESIC BALM CRM 120 GM TOP ×2 (17:31→21:11)
[2017-03-21] MEDS: RIVAROXABAN 20 MG TAB (XARELTO) PO (17:31)
[2017-03-21 20:31] LABS: BEDSIDE GLUCOSE 323 MG/DL (80-115)
[2017-03-21] MEDS: LEVEMIR (INSULIN DETEMIR) 1 UNITS/0.01ML SC (21:12)
[2017-03-22] MEDS: IPRATROPIUM 0.5MG/ALBUTEROL 2.5MG INH SOL UD 3ML (DUONEB)(J7620) NEB ×4 (01:35→19:44)
[2017-03-22 07:01] LABS: BEDSIDE GLUCOSE 66 MG/DL (80-115)
[2017-03-22 07:18] LABS: HEMATOCRIT 29.9 % (42.0-52.0); HEMOGLOBIN 9.2 g/dl (14.0-18.0); MEAN CORPUSCULAR HEMOGLOBIN 27.2 pg (27.0-33.0); MEAN CORPUSCULAR HGB CONC 30.8 g/dl (32.0-36.5); MEAN CORPUSCULAR VOLUME 88.5 fl (80.0-96.0); PLATELET COUNT, AUTOMATED 439 10^3/uL (150-450); RED BLOOD COUNT 3.38 10^6/uL (4.30-6.10); RED CELL DISTRIBUTION WIDTH 15.4 % (11.5-14.5); WHITE BLOOD COUNT 11.1 10^3/uL (4.0-10.0)
[2017-03-22] MEDS: HumaLOG INSULIN (NovoLOG) PER UNIT SC ×4 (07:27→20:44)
[2017-03-22 07:36] LABS: BEDSIDE GLUCOSE 112 MG/DL (80-115)
[2017-03-22 08:03] LABS: DIGOXIN LEVEL 0.6 NG/ML (0.5-2.0)
[2017-03-22] MEDS: guaiFENesin ER 600 MG TAB PO ×2 (08:13→20:45)
[2017-03-22] MEDS: ANALGESIC BALM CRM 120 GM TOP ×4 (08:13→20:46)
[2017-03-22] MEDS: predniSONE 5 MG TAB PO (08:13)
[2017-03-22] MEDS: amLODIPine 10 MG TAB PO (08:14)
[2017-03-22] MEDS: SENOKOT S TAB PO ×2 (08:14→20:45)
[2017-03-22] MEDS: SANTYL OINT 30GM TOP (08:14)
[2017-03-22] MEDS: MULTIVITAMINS/MINERALS THERAP 1 TAB PO (08:14)
[2017-03-22] MEDS: GABAPENTIN 300 MG CAP PO ×2 (08:14→20:45)
[2017-03-22] MEDS: THIAMINE 100 MG TAB PO (08:14)
[2017-03-22] MEDS: FOLIC ACID 1 MG TAB PO (08:14)
[2017-03-22] MEDS: METOPROLOL TARTRATE 100 MG TAB PO ×2 (08:14→20:45)
[2017-03-22] MEDS: PANTOPRAZOLE 40MG TAB (PROTONIX) PO (08:14)
[2017-03-22] MEDS: POTASSIUM CHLORIDE 10 MEQ SR TABLET PO (08:15)
[2017-03-22] MEDS: DIGOXIN 0.125 MG TAB PO (08:15)
[2017-03-22] MEDS: FUROSEMIDE 40 MG TAB PO (08:15)
[2017-03-22 12:08] LABS: BEDSIDE GLUCOSE 217 MG/DL (80-115)
[2017-03-22 17:02] LABS: BEDSIDE GLUCOSE 262 MG/DL (80-115)
[2017-03-22] MEDS: RIVAROXABAN 20 MG TAB (XARELTO) PO (17:15)
[2017-03-22 20:19] LABS: BEDSIDE GLUCOSE 258 MG/DL (80-115)
[2017-03-22] MEDS: LEVEMIR (INSULIN DETEMIR) 1 UNITS/0.01ML SC (20:44)
[2017-03-23] MEDS: IPRATROPIUM 0.5MG/ALBUTEROL 2.5MG INH SOL UD 3ML (DUONEB)(J7620) NEB ×4 (02:00→20:00)
[2017-03-23] MEDS: HumaLOG INSULIN (NovoLOG) PER UNIT SC ×4 (07:30→20:28)
[2017-03-23 07:34] LABS: BASO % 0.4 % (0.0-1.0); EOS # 0.2 10^3/uL (0.0-0.50); EOS % 1.4 % (0.0-3.0); HEMATOCRIT 28.9 % (42.0-52.0); HEMOGLOBIN 9.1 g/dl (14.0-18.0); IMMATURE GRANULOCYTE # 0.1 10^3/uL (0-0); IMMATURE GRANULOCYTE % 1.2 % (0-0); LYMPH # 1.3 10^3/uL (1.5-4.5); LYMPH % 12.2 % (24.0-44.0); MEAN CORPUSCULAR HEMOGLOBIN 27.3 pg (27.0-33.0); MEAN CORPUSCULAR HGB CONC 31.5 g/dl (32.0-36.5); MEAN CORPUSCULAR VOLUME 86.8 fl (80.0-96.0); MONO # 0.8 10^3/uL (0.0-0.8); NEUTROPHILS # 8.5 10^3/uL (1.8-7.7); NEUTROPHILS % 77.8 % (36.0-66.0); PLATELET COUNT, AUTOMATED 401 10^3/uL (150-450); RED BLOOD COUNT 3.33 10^6/uL (4.30-6.10); RED CELL DISTRIBUTION WIDTH 15.4 % (11.5-14.5); WHITE BLOOD COUNT 10.9 10^3/uL (4.0-10.0)
[2017-03-23 07:56] LABS: ALBUMIN 2.3 GM/DL (3.2-5.2); ALBUMIN/GLOBULIN RATIO 0.56 (1.00-1.93); ALKALINE PHOSPHATASE 74 U/L (45-117); ALT/SGPT 16 U/L (12-78); ANION GAP 9 MEQ/L (8-16); AST/SGOT 16 U/L (7-37); BILIRUBIN,TOTAL 0.3 MG/DL (0.2-1.0); BLOOD UREA NITROGEN 22 MG/DL (7-18); CALCIUM LEVEL 8.1 MG/DL (8.8-10.2); CARBON DIOXIDE LEVEL 25 MEQ/L (21-32); CHLORIDE LEVEL 108 MEQ/L (98-107); CREATININE FOR GFR 0.89 MG/DL (0.70-1.30); GLOMERULAR FILTRATION RATE > 60.0 (>49); GLUCOSE, FASTING 75 MG/DL (80-110); POTASSIUM SERUM 3.6 MEQ/L (3.5-5.1); SODIUM LEVEL 142 MEQ/L (136-145); TOTAL PROTEIN 6.4 GM/DL (6.4-8.2)
[2017-03-23] MEDS: guaiFENesin ER 600 MG TAB PO ×2 (08:21→20:28)
[2017-03-23] MEDS: MULTIVITAMINS/MINERALS THERAP 1 TAB PO (08:21)
[2017-03-23] MEDS: GABAPENTIN 300 MG CAP PO ×2 (08:21→20:28)
[2017-03-23] MEDS: FOLIC ACID 1 MG TAB PO (08:21)
[2017-03-23] MEDS: SENOKOT S TAB PO ×2 (08:21→20:28)
[2017-03-23] MEDS: POTASSIUM CHLORIDE 10 MEQ SR TABLET PO (08:23)
[2017-03-23] MEDS: METOPROLOL TARTRATE 100 MG TAB PO ×2 (08:23→20:28)
[2017-03-23] MEDS: DIGOXIN 0.125 MG TAB PO (08:23)
[2017-03-23] MEDS: FUROSEMIDE 40 MG TAB PO (08:24)
[2017-03-23] MEDS: predniSONE 5 MG TAB PO (08:24)
[2017-03-23] MEDS: THIAMINE 100 MG TAB PO (08:24)
[2017-03-23] MEDS: PANTOPRAZOLE 40MG TAB (PROTONIX) PO (08:24)
[2017-03-23] MEDS: amLODIPine 10 MG TAB PO (08:24)
[2017-03-23] MEDS: ANALGESIC BALM CRM 120 GM TOP ×4 (08:25→20:29)
[2017-03-23] MEDS: SANTYL OINT 30GM TOP (08:25)
[2017-03-23] MEDS: ACETAMINOPHEN TAB 650MG DOSE (2X325MG) PO ×2 (08:32→20:46)
[2017-03-23 11:50] LABS: BEDSIDE GLUCOSE 186 MG/DL (80-115)
[2017-03-23] MEDS: RIVAROXABAN 20 MG TAB (XARELTO) PO (17:46)
[2017-03-23 17:48] LABS: BEDSIDE GLUCOSE 354 MG/DL (80-115)
[2017-03-23 20:00] LABS: BEDSIDE GLUCOSE 291 MG/DL (80-115)
[2017-03-23] MEDS: LEVEMIR (INSULIN DETEMIR) 1 UNITS/0.01ML SC (20:29)
[2017-03-24] MEDS: IPRATROPIUM 0.5MG/ALBUTEROL 2.5MG INH SOL UD 3ML (DUONEB)(J7620) NEB ×4 (02:00→21:13)
[2017-03-24 06:05] LABS: BEDSIDE GLUCOSE 47 MG/DL (80-115)
[2017-03-24 06:25] LABS: BEDSIDE GLUCOSE 86 MG/DL (80-115)
[2017-03-24] MEDS: HumaLOG INSULIN (NovoLOG) PER UNIT SC ×4 (07:22→20:34)
[2017-03-24] MEDS: MULTIVITAMINS/MINERALS THERAP 1 TAB PO (08:50)
[2017-03-24] MEDS: PANTOPRAZOLE 40MG TAB (PROTONIX) PO (08:50)
[2017-03-24] MEDS: THIAMINE 100 MG TAB PO (08:50)
[2017-03-24] MEDS: guaiFENesin ER 600 MG TAB PO ×2 (08:50→20:34)
[2017-03-24] MEDS: GABAPENTIN 300 MG CAP PO ×2 (08:50→20:34)
[2017-03-24] MEDS: amLODIPine 10 MG TAB PO (08:51)
[2017-03-24] MEDS: DIGOXIN 0.125 MG TAB PO (08:51)
[2017-03-24] MEDS: SENOKOT S TAB PO ×2 (08:51→20:34)
[2017-03-24] MEDS: FOLIC ACID 1 MG TAB PO (08:51)
[2017-03-24] MEDS: FUROSEMIDE 40 MG TAB PO (08:51)
[2017-03-24] MEDS: predniSONE 5 MG TAB PO (08:52)
[2017-03-24] MEDS: METOPROLOL TARTRATE 100 MG TAB PO ×2 (08:52→20:35)
[2017-03-24] MEDS: POTASSIUM CHLORIDE 10 MEQ SR TABLET PO (08:52)
[2017-03-24] MEDS: SANTYL OINT 30GM TOP (08:53)
[2017-03-24] MEDS: ANALGESIC BALM CRM 120 GM TOP ×4 (08:53→20:35)
[2017-03-24 11:50] LABS: BEDSIDE GLUCOSE 298 MG/DL (80-115)
[2017-03-24 17:00] LABS: BEDSIDE GLUCOSE 239 MG/DL (80-115)
[2017-03-24] MEDS: RIVAROXABAN 20 MG TAB (XARELTO) PO (17:15)
[2017-03-24] MEDS: LEVEMIR (INSULIN DETEMIR) 1 UNITS/0.01ML SC (20:34)
[2017-03-24 20:35] LABS: BEDSIDE GLUCOSE 288 MG/DL (80-115)
[2017-03-25 06:25] LABS: BEDSIDE GLUCOSE 122 MG/DL (80-115)
[2017-03-25] MEDS: ACETAMINOPHEN TAB 650MG DOSE (2X325MG) PO (06:30)
[2017-03-25 07:44] LABS: HEMATOCRIT 29.2 % (42.0-52.0); MEAN CORPUSCULAR HEMOGLOBIN 26.9 pg (27.0-33.0); MEAN CORPUSCULAR HGB CONC 30.8 g/dl (32.0-36.5); MEAN CORPUSCULAR VOLUME 87.4 fl (80.0-96.0); PLATELET COUNT, AUTOMATED 343 10^3/uL (150-450); RED BLOOD COUNT 3.34 10^6/uL (4.30-6.10); RED CELL DISTRIBUTION WIDTH 15.4 % (11.5-14.5); WHITE BLOOD COUNT 9.6 10^3/uL (4.0-10.0)
[2017-03-25] MEDS: IPRATROPIUM 0.5MG/ALBUTEROL 2.5MG INH SOL UD 3ML (DUONEB)(J7620) NEB ×3 (08:00→20:07)
[2017-03-25 08:18] LABS: ALBUMIN 2.3 GM/DL (3.2-5.2); ALBUMIN/GLOBULIN RATIO 0.64 (1.00-1.93); ALKALINE PHOSPHATASE 77 U/L (45-117); ALT/SGPT 19 U/L (12-78); ANION GAP 5 MEQ/L (8-16); AST/SGOT 17 U/L (7-37); BILIRUBIN,TOTAL 0.3 MG/DL (0.2-1.0); BLOOD UREA NITROGEN 20 MG/DL (7-18); C REACTIVE PROTEIN QUANTITATIV 1.98 MG/DL (0.00-0.30); CARBON DIOXIDE LEVEL 29 MEQ/L (21-32); CHLORIDE LEVEL 106 MEQ/L (98-107); CREATININE FOR GFR 0.97 MG/DL (0.70-1.30); GLOMERULAR FILTRATION RATE > 60.0 (>49); GLUCOSE, FASTING 89 MG/DL (80-110); POTASSIUM SERUM 3.6 MEQ/L (3.5-5.1); SODIUM LEVEL 140 MEQ/L (136-145); TOTAL PROTEIN 5.9 GM/DL (6.4-8.2)
[2017-03-25] MEDS: amLODIPine 10 MG TAB PO (08:19)
[2017-03-25] MEDS: METOPROLOL TARTRATE 100 MG TAB PO ×2 (08:19→20:28)
[2017-03-25] MEDS: GABAPENTIN 300 MG CAP PO ×2 (08:19→20:27)
[2017-03-25] MEDS: MULTIVITAMINS/MINERALS THERAP 1 TAB PO (08:19)
[2017-03-25] MEDS: SENOKOT S TAB PO ×2 (08:19→20:28)
[2017-03-25] MEDS: POTASSIUM CHLORIDE 10 MEQ SR TABLET PO (08:19)
[2017-03-25] MEDS: DIGOXIN 0.125 MG TAB PO (08:19)
[2017-03-25] MEDS: HumaLOG INSULIN (NovoLOG) PER UNIT SC ×4 (08:20→21:00)
[2017-03-25] MEDS: FUROSEMIDE 40 MG TAB PO (08:20)
[2017-03-25] MEDS: PANTOPRAZOLE 40MG TAB (PROTONIX) PO (08:20)
[2017-03-25] MEDS: predniSONE 5 MG TAB PO (08:20)
[2017-03-25] MEDS: FOLIC ACID 1 MG TAB PO (08:20)
[2017-03-25] MEDS: guaiFENesin ER 600 MG TAB PO ×2 (08:20→20:27)
[2017-03-25] MEDS: SANTYL OINT 30GM TOP (08:21)
[2017-03-25] MEDS: ANALGESIC BALM CRM 120 GM TOP ×4 (08:21→20:29)
[2017-03-25] MEDS: THIAMINE 100 MG TAB PO (08:21)
[2017-03-25 10:56] LABS: URIC ACID 7.2 MG/DL (3.5-7.2)
[2017-03-25 11:36] LABS: BEDSIDE GLUCOSE 131 MG/DL (80-115)
[2017-03-25 17:11] LABS: BEDSIDE GLUCOSE 323 MG/DL (80-115)
[2017-03-25] MEDS: RIVAROXABAN 20 MG TAB (XARELTO) PO (17:22)
[2017-03-25] MEDS: LEVEMIR (INSULIN DETEMIR) 1 UNITS/0.01ML SC (20:28)
[2017-03-25 21:52] LABS: BEDSIDE GLUCOSE 324 MG/DL (80-115)
[2017-03-26] MEDS: IPRATROPIUM 0.5MG/ALBUTEROL 2.5MG INH SOL UD 3ML (DUONEB)(J7620) NEB ×2 (02:00→08:00)
[2017-03-26 07:04] LABS: BEDSIDE GLUCOSE 65 MG/DL (80-115)
[2017-03-26] MEDS: HumaLOG INSULIN (NovoLOG) PER UNIT SC (07:30)
[2017-03-26] MEDS: ANALGESIC BALM CRM 120 GM TOP (09:00)
[2017-03-26] MEDS: SENOKOT S TAB PO (09:00)
[2017-03-26] MEDS: THIAMINE 100 MG TAB PO (09:00)
[2017-03-26] MEDS: predniSONE 5 MG TAB PO (09:00)
[2017-03-26] MEDS: SANTYL OINT 30GM TOP (09:00)
[2017-03-26] MEDS: DIGOXIN 0.125 MG TAB PO (09:00)
[2017-03-26] MEDS: METOPROLOL TARTRATE 100 MG TAB PO (09:00)
[2017-03-26] MEDS: amLODIPine 10 MG TAB PO (09:00)
[2017-03-26] MEDS: FOLIC ACID 1 MG TAB PO (09:00)
[2017-03-26] MEDS: GABAPENTIN 300 MG CAP PO (09:00)
[2017-03-26] MEDS: FUROSEMIDE 40 MG TAB PO (09:00)
[2017-03-26] MEDS: POTASSIUM CHLORIDE 10 MEQ SR TABLET PO (09:00)
[2017-03-26] MEDS: PANTOPRAZOLE 40MG TAB (PROTONIX) PO (09:00)
[2017-03-26] MEDS: guaiFENesin ER 600 MG TAB PO (09:00)
[2017-03-26] MEDS: MULTIVITAMINS/MINERALS THERAP 1 TAB PO (09:00)
== END 2017-03-26 11:40 | disposition home health service (06) | DRG 57 ==
LOC: M PM&R 14:35
PROVIDERS: Physical Medicine & Rehabilitation
DX: I69.354 Hemiplegia and hemiparesis following cerebral infarction affecting left non-dominant side (principal); I50.9 Heart failure, unspecified; I25.10 Atherosclerotic heart disease of native coronary artery without angina pectoris; I48.91 Unspecified atrial fibrillation; I11.0 Hypertensive heart disease with heart failure; E78.00 Pure hypercholesterolemia, unspecified; F10.10 Alcohol abuse, uncomplicated; K21.9 Gastro-esophageal reflux disease without esophagitis; I27.20 Pulmonary hypertension, unspecified; E66.3 Overweight; E11.42 Type 2 diabetes mellitus with diabetic polyneuropathy; M10.072 Idiopathic gout, left ankle and foot; G47.33 Obstructive sleep apnea (adult) (pediatric); F32.9 Major depressive disorder, single episode, unspecified; M10.062 Idiopathic gout, left knee; F41.9 Anxiety disorder, unspecified; M54.5 Low back pain; Z86.718 Personal history of other venous thrombosis and embolism; Z95.2 Presence of prosthetic heart valve; Z79.4 Long term (current) use of insulin; Z79.01 Long term (current) use of anticoagulants; Z79.899 Other long term (current) drug therapy; Z68.30 Body mass index [BMI] 30.0-30.9, adult; Z99.89 Dependence on other enabling machines and devices; Z98.1 Arthrodesis status; Z98.52 Vasectomy status; Z85.46 Personal history of malignant neoplasm of prostate; M70.22 Olecranon bursitis, left elbow

== ENCOUNTER 2017-06-21 09:03 | Inpatient (IN) | payer MEDICARE ==
[2017-06-21 09:47] LABS: BASO # 0.1 10^3/uL (0.0-0.2); BASO % 0.5 % (0.0-1.0); EOS % 0.1 % (0.0-3.0); HEMATOCRIT 37.4 % (42.0-52.0); HEMOGLOBIN 11.7 g/dl (13.5-17.5); IMMATURE GRANULOCYTE % 0.4 % (0-3.0); LYMPH # 0.3 10^3/uL (1.5-4.5); LYMPH % 3.1 % (24.0-44.0); MEAN CORPUSCULAR HEMOGLOBIN 25.3 pg (27.0-33.0); MEAN CORPUSCULAR HGB CONC 31.3 g/dl (32.0-36.5); MONO # 0.7 10^3/uL (0.0-0.8); MONO % 7.8 % (0.0-5.0); NEUTROPHILS # 8.4 10^3/uL (1.8-7.7); NEUTROPHILS % 88.1 % (36.0-66.0); PLATELET COUNT, AUTOMATED 158 10^3/uL (150-450); RED BLOOD COUNT 4.62 10^6/uL (4.30-6.10); RED CELL DISTRIBUTION WIDTH 16.1 % (11.5-14.5); WHITE BLOOD COUNT 9.5 10^3/uL (4.0-10.0)
[2017-06-21 09:55] LABS: POSITIVE DIFF POS FLAG
[2017-06-21 10:14] LABS: ALBUMIN 3.9 GM/DL (3.2-5.2); ALBUMIN/GLOBULIN RATIO 1.08 (1.00-1.93); ALKALINE PHOSPHATASE 75 U/L (45-117); ALT/SGPT 14 U/L (12-78); ANION GAP 9 MEQ/L (8-16); AST/SGOT 21 U/L (7-37); BILIRUBIN,DIRECT 0.4 MG/DL (0.0-0.2); BILIRUBIN,TOTAL 1.6 MG/DL (0.2-1.0); BLOOD UREA NITROGEN 14 MG/DL (7-18); CALCIUM LEVEL 8.9 MG/DL (8.8-10.2); CARBON DIOXIDE LEVEL 30 MEQ/L (21-32); CHLORIDE LEVEL 97 MEQ/L (98-107); CPK CREATINE PHOSPHOKINASE 32 U/L (39-308); CREATININE FOR GFR 1.23 MG/DL (0.70-1.30); GLOMERULAR FILTRATION RATE > 60.0 (>42); GLUCOSE, FASTING 93 MG/DL (70-100); POTASSIUM SERUM 3.2 MEQ/L (3.5-5.1); SODIUM LEVEL 136 MEQ/L (136-145); TOTAL PROTEIN 7.5 GM/DL (6.4-8.2); TROPONIN I 0.02 NG/ML (< 0.10)
[2017-06-21 10:21] LABS: INFLUENZA A AMPLIFICATION NEGATIVE (NEGATIVE); INFLUENZA B AMPLIFICATION NEGATIVE (NEGATIVE)
[2017-06-21 10:25] LABS: CK-MB VALUE MASS < 1.0 NG/ML (<3.6); DIGOXIN LEVEL 0.9 NG/ML (0.5-2.0); MB/CK RELATIVE INDEX 3.12 (< OR =4); NT-PRO BNP 6825 PG/ML (<125)
[2017-06-21] MEDS ORDERED: ISOVUE-370 76% 100ML VIAL (Q9967) As Ordered (10:26)
[2017-06-21 10:32] LABS: LACTIC ACID SEPSIS PROTOCOL 2.2 MMOL/L (0.4-2.0)
[2017-06-21] MEDS: POTASSIUM CHLORIDE 10% LIQ 20 MEQ/15 ML UDC PO (13:02)
[2017-06-21] MEDS: FUROSEMIDE 40 MG/4 ML VIAL (J1940) IV ×2 (13:03→16:20)
[2017-06-21] MEDS ORDERED: GLUCAGON FOR INJ 1 MG VIAL (J1610) SC (14:00)
[2017-06-21] MEDS ORDERED: DEXTROSE 50% 50 ML SYRINGE IV (14:00)
[2017-06-21] MEDS ORDERED: GLUCOSE 4 GM CHEW TABLET PO (14:00)
[2017-06-21 14:43] LABS: VITAMIN B12 LEVEL 261 PG/ML
[2017-06-21 14:45] LABS: FOLATE 12.3 NG/ML
[2017-06-21 14:46] LABS: C REACTIVE PROTEIN QUANTITATIV 6.56 MG/DL (0.00-0.30); CPK CREATINE PHOSPHOKINASE 27 U/L (39-308); IRON (FE) 19 UG/DL (65-175); LIPASE 204 U/L (73-393); MAGNESIUM LEVEL 1.7 MG/DL (1.8-2.4); PERCENT SATURATION 5.1 % (19.7-50.0); THYROXINE (T4) 8.7 UG/DL (4.5-12.0); TOTAL IRON BINDING CAPACITY 376 UG/DL (250-450); TROPONIN I 0.02 NG/ML (< 0.10); URIC ACID 12.2 MG/DL (3.5-7.2)
[2017-06-21 14:52] LABS: CK-MB VALUE MASS < 1.0 NG/ML (<3.6); FERRITIN 89 NG/ML (26-388); FREE THYROXINE INDEX 3.4 % (1.4-3.8); T UPTAKE 39 % (33-40); THYROID STIMULATING HORMONE 0.906 uIU/ML (0.358-3.740)
[2017-06-21] MEDS: MAG SULF 1GM/100ML (MAG RUN) 1 GM in APPROPRIATE DILUENT 1 EA IV (16:19)
[2017-06-21] MEDS: PANTOPRAZOLE 40MG TAB (PROTONIX) PO (16:21)
[2017-06-21] MEDS: SPIRONOLACTONE 12.5MG PER 1/2 TABLET PO (16:21)
[2017-06-21] MEDS: DIGOXIN 0.125 MG TAB PO (16:21)
[2017-06-21] MEDS: MULTIVITAMINS/MINERALS THERAP 1 TAB PO (16:22)
[2017-06-21] MEDS: predniSONE 10 MG TAB PO (16:22)
[2017-06-21] MEDS: GABAPENTIN 300 MG CAP PO ×2 (16:22→21:25)
[2017-06-21] MEDS: FOLIC ACID 1 MG TAB PO (16:22)
[2017-06-21] MEDS: THIAMINE 100 MG TAB PO (16:22)
[2017-06-21] MEDS: POTASSIUM CHLORIDE 10 MEQ SR TABLET PO (16:23)
[2017-06-21] MEDS: OXAZEPAM 10 MG CAP PO (16:23)
[2017-06-21] MEDS: amLODIPine 5 MG TAB PO (16:23)
[2017-06-21 16:53] LABS: BEDSIDE GLUCOSE 84 MG/DL (83-110)
[2017-06-21] MEDS: HumaLOG INSULIN (NovoLOG) PER UNIT SC ×2 (17:53→21:26)
[2017-06-21 18:25] LABS: BEDSIDE GLUCOSE 223 MG/DL (83-110)
[2017-06-21 19:23] LABS: ANION GAP 11 MEQ/L (8-16); BLOOD UREA NITROGEN 14 MG/DL (7-18); CALCIUM LEVEL 8.5 MG/DL (8.8-10.2); CARBON DIOXIDE LEVEL 27 MEQ/L (21-32); CHLORIDE LEVEL 96 MEQ/L (98-107); CK-MB VALUE MASS < 1.0 NG/ML (<3.6); CPK CREATINE PHOSPHOKINASE 35 U/L (39-308); CREATININE FOR GFR 1.39 MG/DL (0.70-1.30); GLOMERULAR FILTRATION RATE 53.8 (>42); GLUCOSE, FASTING 244 MG/DL (70-100); MB/CK RELATIVE INDEX 2.85 (< OR =4); POTASSIUM SERUM 4.1 MEQ/L (3.5-5.1); SODIUM LEVEL 134 MEQ/L (136-145); TROPONIN I < 0.02 NG/ML (< 0.10)
[2017-06-21] MEDS: SIMVASTATIN 20 MG TAB PO (21:25)
[2017-06-21] MEDS: RIVAROXABAN 20 MG TAB (XARELTO) PO (21:25)
[2017-06-21] MEDS: METOPROLOL TART 50 MG TAB PO (21:26)
[2017-06-21] MEDS: LEVEMIR (INSULIN DETEMIR) 1 UNITS/0.01ML SC (23:15)
[2017-06-22 02:23] LABS: BEDSIDE GLUCOSE 380 MG/DL (83-110)
[2017-06-22 03:22] LABS: BASO % 0.4 % (0.0-1.0); HEMATOCRIT 31.7 % (42.0-52.0); HEMOGLOBIN 9.9 g/dl (13.5-17.5); IMMATURE GRANULOCYTE % 0.7 % (0-3.0); LYMPH # 0.4 10^3/uL (1.5-4.5); LYMPH % 5.3 % (24.0-44.0); MEAN CORPUSCULAR HEMOGLOBIN 25.7 pg (27.0-33.0); MEAN CORPUSCULAR HGB CONC 31.2 g/dl (32.0-36.5); MEAN CORPUSCULAR VOLUME 82.3 fl (80.0-96.0); MONO # 0.8 10^3/uL (0.0-0.8); MONO % 9.9 % (0.0-5.0); NEUTROPHILS # 6.7 10^3/uL (1.8-7.7); NEUTROPHILS % 83.7 % (36.0-66.0); PLATELET COUNT, AUTOMATED 117 10^3/uL (150-450); RED BLOOD COUNT 3.85 10^6/uL (4.30-6.10); RED CELL DISTRIBUTION WIDTH 16.1 % (11.5-14.5); WHITE BLOOD COUNT 8.1 10^3/uL (4.0-10.0)
[2017-06-22 03:52] LABS: ALBUMIN 3.1 GM/DL (3.2-5.2); ALBUMIN/GLOBULIN RATIO 0.94 (1.00-1.93); ALKALINE PHOSPHATASE 68 U/L (45-117); ALT/SGPT 13 U/L (12-78); ANION GAP 10 MEQ/L (8-16); AST/SGOT 10 U/L (7-37); BILIRUBIN,TOTAL 0.9 MG/DL (0.2-1.0); BLOOD UREA NITROGEN 14 MG/DL (7-18); CARBON DIOXIDE LEVEL 28 MEQ/L (21-32); CHLORIDE LEVEL 99 MEQ/L (98-107); CK-MB VALUE MASS < 1.0 NG/ML (<3.6); CPK CREATINE PHOSPHOKINASE 20 U/L (39-308); GLOMERULAR FILTRATION RATE 58.1 (>42); GLUCOSE, FASTING 294 MG/DL (70-100); MAGNESIUM LEVEL 1.8 MG/DL (1.8-2.4); POTASSIUM SERUM 3.7 MEQ/L (3.5-5.1); SODIUM LEVEL 137 MEQ/L (136-145); TOTAL PROTEIN 6.4 GM/DL (6.4-8.2); TROPONIN I < 0.02 NG/ML (< 0.10)
[2017-06-22] MEDS: HumaLOG INSULIN (NovoLOG) PER UNIT SC ×4 (07:54→21:59)
[2017-06-22] MEDS: predniSONE 10 MG TAB PO (09:31)
[2017-06-22] MEDS: GABAPENTIN 300 MG CAP PO ×2 (09:31→21:59)
[2017-06-22] MEDS: THIAMINE 100 MG TAB PO (09:31)
[2017-06-22] MEDS: POTASSIUM CHLORIDE 10 MEQ SR TABLET PO (09:31)
[2017-06-22] MEDS: MULTIVITAMINS/MINERALS THERAP 1 TAB PO (09:32)
[2017-06-22] MEDS: METOPROLOL TARTRATE 100 MG TAB PO (09:32)
[2017-06-22] MEDS: DIGOXIN 0.125 MG TAB PO (09:32)
[2017-06-22] MEDS: amLODIPine 5 MG TAB PO (09:32)
[2017-06-22] MEDS: FOLIC ACID 1 MG TAB PO (09:32)
[2017-06-22] MEDS: FUROSEMIDE 40 MG/4 ML VIAL (J1940) IV ×2 (09:33→17:35)
[2017-06-22] MEDS: PANTOPRAZOLE 40MG TAB (PROTONIX) PO (09:33)
[2017-06-22] MEDS: SPIRONOLACTONE 12.5MG PER 1/2 TABLET PO (09:33)
[2017-06-22 10:45] LABS: CK-MB VALUE MASS < 1.0 NG/ML (<3.6); CPK CREATINE PHOSPHOKINASE 26 U/L (39-308); MB/CK RELATIVE INDEX 3.84 (< OR =4); TROPONIN I < 0.02 NG/ML (< 0.10)
[2017-06-22 11:48] LABS: BEDSIDE GLUCOSE 202 MG/DL (83-110)
[2017-06-22 16:59] LABS: BEDSIDE GLUCOSE 399 MG/DL (83-110)
[2017-06-22 21:57] LABS: BEDSIDE GLUCOSE 340 MG/DL (83-110)
[2017-06-22] MEDS: RIVAROXABAN 20 MG TAB (XARELTO) PO (21:58)
[2017-06-22] MEDS: LEVEMIR (INSULIN DETEMIR) 1 UNITS/0.01ML SC (21:59)
[2017-06-22] MEDS: METOPROLOL TART 50 MG TAB PO (21:59)
[2017-06-22] MEDS: SIMVASTATIN 20 MG TAB PO (21:59)
[2017-06-23 04:01] LABS: BASO % 0.6 % (0.0-1.0); EOS # 0.1 10^3/uL (0.0-0.50); EOS % 0.9 % (0.0-3.0); HEMATOCRIT 30.8 % (42.0-52.0); HEMOGLOBIN 9.4 g/dl (13.5-17.5); IMMATURE GRANULOCYTE % 0.6 % (0-3.0); LYMPH # 0.7 10^3/uL (1.5-4.5); LYMPH % 10.6 % (24.0-44.0); MEAN CORPUSCULAR HEMOGLOBIN 25.3 pg (27.0-33.0); MEAN CORPUSCULAR HGB CONC 30.5 g/dl (32.0-36.5); MONO # 0.7 10^3/uL (0.0-0.8); MONO % 10.6 % (0.0-5.0); NEUTROPHILS # 5.1 10^3/uL (1.8-7.7); NEUTROPHILS % 76.7 % (36.0-66.0); PLATELET COUNT, AUTOMATED 125 10^3/uL (150-450); RED BLOOD COUNT 3.71 10^6/uL (4.30-6.10); RED CELL DISTRIBUTION WIDTH 15.8 % (11.5-14.5); WHITE BLOOD COUNT 6.6 10^3/uL (4.0-10.0)
[2017-06-23 04:22] LABS: ALBUMIN/GLOBULIN RATIO 0.97 (1.00-1.93); ALKALINE PHOSPHATASE 72 U/L (45-117); ALT/SGPT 11 U/L (12-78); ANION GAP 10 MEQ/L (8-16); AST/SGOT 9 U/L (7-37); BILIRUBIN,TOTAL 0.7 MG/DL (0.2-1.0); BLOOD UREA NITROGEN 18 MG/DL (7-18); CALCIUM LEVEL 8.2 MG/DL (8.8-10.2); CARBON DIOXIDE LEVEL 30 MEQ/L (21-32); CHLORIDE LEVEL 98 MEQ/L (98-107); CREATININE FOR GFR 1.29 MG/DL (0.70-1.30); GLOMERULAR FILTRATION RATE 58.6 (>42); GLUCOSE, FASTING 289 MG/DL (70-100); MAGNESIUM LEVEL 1.5 MG/DL (1.8-2.4); POTASSIUM SERUM 3.4 MEQ/L (3.5-5.1); SODIUM LEVEL 138 MEQ/L (136-145); TOTAL PROTEIN 6.1 GM/DL (6.4-8.2)
[2017-06-23] MEDS: MAG SULF 1GM/100ML (MAG RUN) 1 GM in APPROPRIATE DILUENT 1 EA IV ×3 (05:29→09:25)
[2017-06-23] MEDS: POTASSIUM CHLORIDE 10 MEQ SR TABLET PO ×3 (05:29→09:24)
[2017-06-23] MEDS: HumaLOG INSULIN (NovoLOG) PER UNIT SC ×4 (07:46→20:42)
[2017-06-23] MEDS: MULTIVITAMINS/MINERALS THERAP 1 TAB PO (09:23)
[2017-06-23] MEDS: SPIRONOLACTONE 12.5MG PER 1/2 TABLET PO (09:23)
[2017-06-23] MEDS: PANTOPRAZOLE 40MG TAB (PROTONIX) PO (09:23)
[2017-06-23] MEDS: THIAMINE 100 MG TAB PO (09:23)
[2017-06-23] MEDS: GABAPENTIN 300 MG CAP PO ×2 (09:23→20:44)
[2017-06-23] MEDS: DIGOXIN 0.125 MG TAB PO (09:23)
[2017-06-23] MEDS: FOLIC ACID 1 MG TAB PO (09:24)
[2017-06-23] MEDS: predniSONE 10 MG TAB PO (09:24)
[2017-06-23] MEDS: METOPROLOL TARTRATE 100 MG TAB PO (09:24)
[2017-06-23] MEDS: amLODIPine 5 MG TAB PO (09:24)
[2017-06-23] MEDS: FUROSEMIDE 40 MG/4 ML VIAL (J1940) IV ×2 (09:25→17:16)
[2017-06-23 09:50] LABS: KETONE, URINE AUTO RFX NEGATIVE (NEGATIVE); LEUKOCYTE ESTERASE UR AUTO RFX NEGATIVE (NEGATIVE); NITRITE, URINE AUTO RFX NEGATIVE (NEGATIVE); RBC, URINE AUTO RFX 2 /HPF (0-3); SQUAM EPITHELIAL CELL UR AURFX 0 /HPF (0-6); WBC, URINE AUTO RFX 2 /HPF (0-3)
[2017-06-23 11:47] LABS: BEDSIDE GLUCOSE 305 MG/DL (83-110)
[2017-06-23 17:16] LABS: BEDSIDE GLUCOSE 352 MG/DL (83-110)
[2017-06-23 20:11] LABS: BEDSIDE GLUCOSE 402 MG/DL (83-110)
[2017-06-23] MEDS: LEVEMIR (INSULIN DETEMIR) 1 UNITS/0.01ML SC (20:43)
[2017-06-23] MEDS: METOPROLOL TART 50 MG TAB PO (20:43)
[2017-06-23] MEDS: RIVAROXABAN 20 MG TAB (XARELTO) PO (20:43)
[2017-06-23] MEDS: SIMVASTATIN 20 MG TAB PO (20:44)
[2017-06-24 04:43] LABS: BEDSIDE GLUCOSE 226 MG/DL (83-110)
[2017-06-24 05:18] LABS: BASO % 0.6 % (0.0-1.0); EOS # 0.1 10^3/uL (0.0-0.50); EOS % 1.4 % (0.0-3.0); HEMATOCRIT 32.5 % (42.0-52.0); IMMATURE GRANULOCYTE % 0.6 % (0-3.0); LYMPH # 0.9 10^3/uL (1.5-4.5); LYMPH % 13.7 % (24.0-44.0); MEAN CORPUSCULAR HEMOGLOBIN 25.6 pg (27.0-33.0); MEAN CORPUSCULAR HGB CONC 30.8 g/dl (32.0-36.5); MEAN CORPUSCULAR VOLUME 83.1 fl (80.0-96.0); MONO # 0.7 10^3/uL (0.0-0.8); MONO % 10.9 % (0.0-5.0); NEUTROPHILS # 4.6 10^3/uL (1.8-7.7); NEUTROPHILS % 72.8 % (36.0-66.0); PLATELET COUNT, AUTOMATED 158 10^3/uL (150-450); RED BLOOD COUNT 3.91 10^6/uL (4.30-6.10); RED CELL DISTRIBUTION WIDTH 15.7 % (11.5-14.5); WHITE BLOOD COUNT 6.3 10^3/uL (4.0-10.0)
[2017-06-24 05:58] LABS: ALBUMIN 3.1 GM/DL (3.2-5.2); ALBUMIN/GLOBULIN RATIO 0.84 (1.00-1.93); ALKALINE PHOSPHATASE 67 U/L (45-117); ALT/SGPT 12 U/L (12-78); ANION GAP 9 MEQ/L (8-16); AST/SGOT 10 U/L (7-37); BILIRUBIN,TOTAL 0.6 MG/DL (0.2-1.0); BLOOD UREA NITROGEN 17 MG/DL (7-18); CALCIUM LEVEL 8.4 MG/DL (8.8-10.2); CARBON DIOXIDE LEVEL 27 MEQ/L (21-32); CHLORIDE LEVEL 101 MEQ/L (98-107); CREATININE FOR GFR 1.14 MG/DL (0.70-1.30); GLOMERULAR FILTRATION RATE > 60.0 (>42); GLUCOSE, FASTING 189 MG/DL (70-100); POTASSIUM SERUM 3.6 MEQ/L (3.5-5.1); SODIUM LEVEL 137 MEQ/L (136-145); TOTAL PROTEIN 6.8 GM/DL (6.4-8.2)
[2017-06-24] MEDS: HumaLOG INSULIN (NovoLOG) PER UNIT SC ×4 (07:23→20:53)
[2017-06-24] MEDS: MULTIVITAMINS/MINERALS THERAP 1 TAB PO (09:17)
[2017-06-24] MEDS: FOLIC ACID 1 MG TAB PO (09:17)
[2017-06-24] MEDS: FUROSEMIDE 40 MG/4 ML VIAL (J1940) IV ×2 (09:17→16:58)
[2017-06-24] MEDS: DIGOXIN 0.125 MG TAB PO (09:17)
[2017-06-24] MEDS: PANTOPRAZOLE 40MG TAB (PROTONIX) PO (09:18)
[2017-06-24] MEDS: METOPROLOL TARTRATE 100 MG TAB PO (09:18)
[2017-06-24] MEDS: POTASSIUM CHLORIDE 10 MEQ SR TABLET PO (09:18)
[2017-06-24] MEDS: predniSONE 10 MG TAB PO (09:18)
[2017-06-24] MEDS: SPIRONOLACTONE 12.5MG PER 1/2 TABLET PO (09:18)
[2017-06-24] MEDS: amLODIPine 5 MG TAB PO (09:18)
[2017-06-24] MEDS: THIAMINE 100 MG TAB PO (09:18)
[2017-06-24] MEDS: GABAPENTIN 300 MG CAP PO ×2 (09:19→20:54)
[2017-06-24 12:26] LABS: BEDSIDE GLUCOSE 304 MG/DL (83-110)
[2017-06-24 16:54] LABS: BEDSIDE GLUCOSE 378 MG/DL (83-110)
[2017-06-24 20:19] LABS: BEDSIDE GLUCOSE 358 MG/DL (83-110)
[2017-06-24] MEDS: LEVEMIR (INSULIN DETEMIR) 1 UNITS/0.01ML SC (20:53)
[2017-06-24] MEDS: SIMVASTATIN 20 MG TAB PO (20:54)
[2017-06-24] MEDS: METOPROLOL TART 50 MG TAB PO (20:54)
[2017-06-24] MEDS: RIVAROXABAN 20 MG TAB (XARELTO) PO (20:54)
[2017-06-25 05:36] LABS: BASO # 0.1 10^3/uL (0.0-0.2); BASO % 1.4 % (0.0-1.0); EOS # 0.1 10^3/uL (0.0-0.50); EOS % 1.9 % (0.0-3.0); HEMATOCRIT 32.1 % (42.0-52.0); HEMOGLOBIN 9.9 g/dl (13.5-17.5); IMMATURE GRANULOCYTE % 0.8 % (0-3.0); LYMPH # 0.8 10^3/uL (1.5-4.5); LYMPH % 16.2 % (24.0-44.0); MEAN CORPUSCULAR HEMOGLOBIN 25.6 pg (27.0-33.0); MEAN CORPUSCULAR HGB CONC 30.8 g/dl (32.0-36.5); MEAN CORPUSCULAR VOLUME 82.9 fl (80.0-96.0); MONO # 0.7 10^3/uL (0.0-0.8); NEUTROPHILS # 3.4 10^3/uL (1.8-7.7); NEUTROPHILS % 65.7 % (36.0-66.0); PLATELET COUNT, AUTOMATED 165 10^3/uL (150-450); RED BLOOD COUNT 3.87 10^6/uL (4.30-6.10); RED CELL DISTRIBUTION WIDTH 15.4 % (11.5-14.5); WHITE BLOOD COUNT 5.1 10^3/uL (4.0-10.0)
[2017-06-25 05:52] LABS: ALBUMIN 3.1 GM/DL (3.2-5.2); ALBUMIN/GLOBULIN RATIO 0.91 (1.00-1.93); ALKALINE PHOSPHATASE 66 U/L (45-117); ALT/SGPT 15 U/L (12-78); ANION GAP 10 MEQ/L (8-16); AST/SGOT 14 U/L (7-37); BILIRUBIN,TOTAL 0.5 MG/DL (0.2-1.0); BLOOD UREA NITROGEN 26 MG/DL (7-18); CALCIUM LEVEL 8.4 MG/DL (8.8-10.2); CARBON DIOXIDE LEVEL 28 MEQ/L (21-32); CHLORIDE LEVEL 104 MEQ/L (98-107); GLOMERULAR FILTRATION RATE > 60.0 (>42); GLUCOSE, FASTING 177 MG/DL (70-100); MAGNESIUM LEVEL 1.6 MG/DL (1.8-2.4); POTASSIUM SERUM 3.7 MEQ/L (3.5-5.1); SODIUM LEVEL 142 MEQ/L (136-145); TOTAL PROTEIN 6.5 GM/DL (6.4-8.2)
[2017-06-25] MEDS: HumaLOG INSULIN (NovoLOG) PER UNIT SC ×2 (07:54→11:55)
[2017-06-25] MEDS: MULTIVITAMINS/MINERALS THERAP 1 TAB PO (09:06)
[2017-06-25] MEDS: POTASSIUM CHLORIDE 10 MEQ SR TABLET PO (09:06)
[2017-06-25] MEDS: GABAPENTIN 300 MG CAP PO (09:07)
[2017-06-25] MEDS: SPIRONOLACTONE 12.5MG PER 1/2 TABLET PO (09:07)
[2017-06-25] MEDS: METOPROLOL TARTRATE 100 MG TAB PO (09:07)
[2017-06-25] MEDS: PANTOPRAZOLE 40MG TAB (PROTONIX) PO (09:07)
[2017-06-25] MEDS: predniSONE 10 MG TAB PO (09:07)
[2017-06-25] MEDS: FUROSEMIDE 40 MG/4 ML VIAL (J1940) IV (09:08)
[2017-06-25] MEDS: DIGOXIN 0.125 MG TAB PO (09:08)
[2017-06-25] MEDS: FOLIC ACID 1 MG TAB PO (09:08)
[2017-06-25] MEDS: THIAMINE 100 MG TAB PO (09:08)
[2017-06-25] MEDS: amLODIPine 5 MG TAB PO (09:09)
[2017-06-25 11:45] LABS: BEDSIDE GLUCOSE 227 MG/DL (83-110)
[2017-06-25] MEDS ORDERED: MAGNESIUM OXIDE 400 MG TAB (MAG-OX) PO (13:30)
== END 2017-06-25 13:37 | disposition home or self-care (01) | DRG 291 ==
LOC: M ED 09:03 → M ED INP 13:28 → M PCU 15:53
DX: I13.0 Hypertensive heart and chronic kidney disease with heart failure and stage 1 through stage 4 chronic kidney disease, or unspecified chronic kidney disease (principal); I50.33 Acute on chronic diastolic (congestive) heart failure; I50.813 Acute on chronic right heart failure; N18.3 Chronic kidney disease, stage 3 (moderate); M10.9 Gout, unspecified; F10.10 Alcohol abuse, uncomplicated; E87.6 Hypokalemia; E11.9 Type 2 diabetes mellitus without complications; E78.5 Hyperlipidemia, unspecified; R26.81 Unsteadiness on feet; I48.2 Chronic atrial fibrillation; G47.33 Obstructive sleep apnea (adult) (pediatric); K21.9 Gastro-esophageal reflux disease without esophagitis; F41.9 Anxiety disorder, unspecified; F32.9 Major depressive disorder, single episode, unspecified; Z98.52 Vasectomy status; Z98.1 Arthrodesis status; Z85.46 Personal history of malignant neoplasm of prostate; Z86.73 Personal history of transient ischemic attack (TIA), and cerebral infarction without residual deficits; Z95.3 Presence of xenogenic heart valve; Z86.718 Personal history of other venous thrombosis and embolism; Z79.4 Long term (current) use of insulin; Z79.01 Long term (current) use of anticoagulants

== ENCOUNTER 2017-07-11 01:05 | Inpatient (IN) | payer MEDICARE ==
[2017-07-11 01:49] LABS: BASO % 0.3 % (0.0-1.0); HEMATOCRIT 32.9 % (42.0-52.0); HEMOGLOBIN 10.7 g/dl (13.5-17.5); IMMATURE GRANULOCYTE % 1.1 % (0-3.0); LYMPH % 8.9 % (24.0-44.0); MEAN CORPUSCULAR HEMOGLOBIN 26.1 pg (27.0-33.0); MEAN CORPUSCULAR HGB CONC 32.5 g/dl (32.0-36.5); MEAN CORPUSCULAR VOLUME 80.2 fl (80.0-96.0); MONO # 0.8 10^3/uL (0.0-0.8); MONO % 7.1 % (0.0-5.0); NEUTROPHILS # 8.9 10^3/uL (1.8-7.7); NEUTROPHILS % 82.6 % (36.0-66.0); PLATELET COUNT, AUTOMATED 190 10^3/uL (150-450); RED CELL DISTRIBUTION WIDTH 16.2 % (11.5-14.5); WHITE BLOOD COUNT 10.7 10^3/uL (4.0-10.0)
[2017-07-11 02:10] LABS: ANION GAP 17 MEQ/L (8-16); BLOOD UREA NITROGEN 24 MG/DL (7-18); CALCIUM LEVEL 8.4 MG/DL (8.8-10.2); CARBON DIOXIDE LEVEL 21 MEQ/L (21-32); CHLORIDE LEVEL 92 MEQ/L (98-107); CREATININE FOR GFR 1.91 MG/DL (0.70-1.30); ETHYL ALCOHOL (ETHANOL) 0.174 % (0.000-0.010); GLOMERULAR FILTRATION RATE 37.3 (>42); GLUCOSE, FASTING 287 MG/DL (70-100); POTASSIUM SERUM 3.5 MEQ/L (3.5-5.1); SODIUM LEVEL 130 MEQ/L (136-145)
[2017-07-11 02:14] LABS: INR 2.38; PROTHROMBIN TIME 26.9 SECONDS (12.4-14.5)
[2017-07-11 02:15] LABS: PARTIAL THROMBOPLASTIN TIME 43.8 SECONDS (26.8-37.9)
[2017-07-11] MEDS ORDERED: LIDOCAINE W/EPINEPHRINE 1% 20ML VIAL As Ordered (02:23)
[2017-07-11] MEDS: DERMABOND TOPICAL SKIN ADHESIVE TOP (02:30)
[2017-07-11] MEDS: LIDOCAINE W/EPINEPHRINE 1% 20ML VIAL SC (02:30)
[2017-07-11] MEDS: NS 1,000 ML IV ×2 (03:07→13:30)
[2017-07-11] MEDS ORDERED: ALBUTEROL SULFATE 2.5 MG/0.5 ML INH NEB SOLN NEB (04:30)
[2017-07-11] MEDS ORDERED: GLUCOSE 4 GM CHEW TABLET PO (04:30)
[2017-07-11] MEDS ORDERED: DEXTROSE 50% 50 ML SYRINGE IV (04:30)
[2017-07-11] MEDS ORDERED: EUCERIN 120GM CREAM TOP (04:30)
[2017-07-11] MEDS ORDERED: GLUCAGON FOR INJ 1 MG VIAL (J1610) SC (04:30)
[2017-07-11] MEDS ORDERED: GABAPENTIN 300 MG CAP PO (04:30)
[2017-07-11 07:51] LABS: BEDSIDE GLUCOSE 252 MG/DL (83-110)
[2017-07-11] MEDS: HumaLOG INSULIN (NovoLOG) PER UNIT SC ×4 (07:51→21:54)
[2017-07-11] MEDS: METOPROLOL TARTRATE 100 MG TAB PO ×2 (08:51→21:55)
[2017-07-11] MEDS: amLODIPine 5 MG TAB PO (08:52)
[2017-07-11] MEDS: DIGOXIN 0.125 MG TAB PO (08:52)
[2017-07-11] MEDS: PANTOPRAZOLE 40MG TAB (PROTONIX) PO (08:53)
[2017-07-11] MEDS: GABAPENTIN 300 MG CAP PO ×2 (08:53→21:54)
[2017-07-11 13:30] LABS: BEDSIDE GLUCOSE 256 MG/DL (83-110)
[2017-07-11] MEDS: OXAZEPAM 10 MG CAP PO (13:35)
[2017-07-11 16:41] LABS: BEDSIDE GLUCOSE 339 MG/DL (83-110)
[2017-07-11 20:48] LABS: BEDSIDE GLUCOSE 286 MG/DL (83-110)
[2017-07-11] MEDS: LEVEMIR (INSULIN DETEMIR) 1 UNITS/0.01ML SC (21:56)
[2017-07-12] MEDS: ACETAMINOPHEN TAB 650MG DOSE (2X325MG) PO ×2 (00:42→12:17)
[2017-07-12 05:33] LABS: BASO % 0.5 % (0.0-1.0); EOS # 0.1 10^3/uL (0.0-0.50); EOS % 0.8 % (0.0-3.0); HEMOGLOBIN 9.9 g/dl (13.5-17.5); IMMATURE GRANULOCYTE % 1.1 % (0-3.0); LYMPH # 0.7 10^3/uL (1.5-4.5); LYMPH % 8.9 % (24.0-44.0); MEAN CORPUSCULAR HEMOGLOBIN 25.6 pg (27.0-33.0); MEAN CORPUSCULAR HGB CONC 30.9 g/dl (32.0-36.5); MEAN CORPUSCULAR VOLUME 82.7 fl (80.0-96.0); MONO # 0.9 10^3/uL (0.0-0.8); MONO % 12.1 % (0.0-5.0); NEUTROPHILS # 5.7 10^3/uL (1.8-7.7); NEUTROPHILS % 76.6 % (36.0-66.0); PLATELET COUNT, AUTOMATED 164 10^3/uL (150-450); RED BLOOD COUNT 3.87 10^6/uL (4.30-6.10); RED CELL DISTRIBUTION WIDTH 16.6 % (11.5-14.5); WHITE BLOOD COUNT 7.4 10^3/uL (4.0-10.0)
[2017-07-12 05:53] LABS: ALBUMIN 2.5 GM/DL (3.2-5.2); ALBUMIN/GLOBULIN RATIO 0.71 (1.00-1.93); ALKALINE PHOSPHATASE 85 U/L (45-117); ALT/SGPT 9 U/L (12-78); ANION GAP 9 MEQ/L (8-16); AST/SGOT 9 U/L (7-37); BILIRUBIN,DIRECT 0.2 MG/DL (0.0-0.2); BILIRUBIN,TOTAL 0.6 MG/DL (0.2-1.0); BLOOD UREA NITROGEN 25 MG/DL (7-18); CARBON DIOXIDE LEVEL 27 MEQ/L (21-32); CHLORIDE LEVEL 101 MEQ/L (98-107); GLOMERULAR FILTRATION RATE 49.3 (>42); GLUCOSE, FASTING 283 MG/DL (70-100); MAGNESIUM LEVEL 1.5 MG/DL (1.8-2.4); POTASSIUM SERUM 3.4 MEQ/L (3.5-5.1); SODIUM LEVEL 137 MEQ/L (136-145)
[2017-07-12] MEDS: HumaLOG INSULIN (NovoLOG) PER UNIT SC ×4 (07:30→20:36)
[2017-07-12] MEDS: POTASSIUM CHLORIDE 10 MEQ SR TABLET PO (09:04)
[2017-07-12] MEDS: MAGNESIUM OXIDE 400 MG TAB (MAG-OX) PO ×2 (09:05→20:38)
[2017-07-12] MEDS: METOPROLOL TARTRATE 100 MG TAB PO ×2 (09:05→20:37)
[2017-07-12] MEDS: GABAPENTIN 300 MG CAP PO ×2 (09:07→20:38)
[2017-07-12] MEDS: DIGOXIN 0.125 MG TAB PO (09:07)
[2017-07-12] MEDS: amLODIPine 5 MG TAB PO (09:07)
[2017-07-12] MEDS: PANTOPRAZOLE 40MG TAB (PROTONIX) PO (09:07)
[2017-07-12] MEDS ORDERED: OXAZEPAM 10 MG CAP PO (09:15)
[2017-07-12] MEDS: OXAZEPAM 10 MG CAP PO ×3 (09:24→20:37)
[2017-07-12 12:20] LABS: BEDSIDE GLUCOSE 426 MG/DL (83-110)
[2017-07-12 17:28] LABS: BEDSIDE GLUCOSE 380 MG/DL (83-110)
[2017-07-12] MEDS: MULTIVITAMINS/MINERALS THERAP 1 TAB PO (18:11)
[2017-07-12] MEDS: ENOXAPARIN 100MG/1ML SYRINGE (J1650) SC (18:11)
[2017-07-12] MEDS: THIAMINE 100 MG TAB PO (18:11)
[2017-07-12] MEDS: FOLIC ACID 1 MG TAB PO (18:11)
[2017-07-12 20:25] LABS: BEDSIDE GLUCOSE 384 MG/DL (83-110)
[2017-07-12] MEDS: LEVEMIR (INSULIN DETEMIR) 1 UNITS/0.01ML SC (20:36)
[2017-07-13] MEDS: ACETAMINOPHEN TAB 650MG DOSE (2X325MG) PO ×2 (00:03→17:59)
[2017-07-13 05:04] LABS: BASO % 0.5 % (0.0-1.0); EOS % 0.4 % (0.0-3.0); HEMATOCRIT 30.4 % (42.0-52.0); HEMOGLOBIN 9.4 g/dl (13.5-17.5); IMMATURE GRANULOCYTE % 1.2 % (0-3.0); LYMPH # 0.5 10^3/uL (1.5-4.5); LYMPH % 6.9 % (24.0-44.0); MEAN CORPUSCULAR HGB CONC 30.9 g/dl (32.0-36.5); MEAN CORPUSCULAR VOLUME 84.2 fl (80.0-96.0); NEUTROPHILS # 5.9 10^3/uL (1.8-7.7); PLATELET COUNT, AUTOMATED 156 10^3/uL (150-450); RED BLOOD COUNT 3.61 10^6/uL (4.30-6.10); RED CELL DISTRIBUTION WIDTH 16.9 % (11.5-14.5); WHITE BLOOD COUNT 7.6 10^3/uL (4.0-10.0)
[2017-07-13 05:17] LABS: ALBUMIN 2.5 GM/DL (3.2-5.2); ALBUMIN/GLOBULIN RATIO 0.69 (1.00-1.93); ALKALINE PHOSPHATASE 119 U/L (45-117); ALT/SGPT 33 U/L (12-78); ANION GAP 8 MEQ/L (8-16); AST/SGOT 45 U/L (7-37); BILIRUBIN,TOTAL 0.6 MG/DL (0.2-1.0); BLOOD UREA NITROGEN 21 MG/DL (7-18); CALCIUM LEVEL 8.1 MG/DL (8.8-10.2); CARBON DIOXIDE LEVEL 25 MEQ/L (21-32); CHLORIDE LEVEL 103 MEQ/L (98-107); CHOLESTEROL LEVEL 174 MG/DL (<200); CHOLESTEROL RISK RATIO 3.625 (<5); CREATININE FOR GFR 1.39 MG/DL (0.70-1.30); GLOMERULAR FILTRATION RATE 53.8 (>42); HDL CHOLESTEROL 48 MG/DL (>40); LDL CHOLESTEROL 92.6 MG/DL (<100); MAGNESIUM LEVEL 1.6 MG/DL (1.8-2.4); NON-HDL-C 126 MG/DL; SODIUM LEVEL 136 MEQ/L (136-145); TOTAL PROTEIN 6.1 GM/DL (6.4-8.2); TRIGLYCERIDES LEVEL 167 MG/DL (<150)
[2017-07-13 05:21] LABS: GLUCOSE, FASTING 407 MG/DL (70-100)
[2017-07-13] MEDS: HumaLOG INSULIN (NovoLOG) PER UNIT SC ×5 (05:45→21:09)
[2017-07-13] MEDS: ENOXAPARIN 100MG/1ML SYRINGE (J1650) SC ×2 (05:55→17:40)
[2017-07-13 06:44] LABS: BEDSIDE GLUCOSE 395 MG/DL (83-110)
[2017-07-13 08:31] LABS: ESTIMATED AVERAGE GLUCOSE 206 MG/DL (60-110); HEMOGLOBIN A1c 8.8 %
[2017-07-13] MEDS: MAG SULF 1GM/100ML (MAG RUN) 1 GM in APPROPRIATE DILUENT 1 EA IV (08:31)
[2017-07-13] MEDS: LEVEMIR (INSULIN DETEMIR) 1 UNITS/0.01ML SC ×2 (09:00→21:00)
[2017-07-13] MEDS: OXAZEPAM 10 MG CAP PO ×3 (09:13→21:08)
[2017-07-13] MEDS: FOLIC ACID 1 MG TAB PO (09:14)
[2017-07-13] MEDS: DIGOXIN 0.125 MG TAB PO (09:14)
[2017-07-13] MEDS: MAGNESIUM OXIDE 400 MG TAB (MAG-OX) PO ×2 (09:14→21:08)
[2017-07-13] MEDS: PANTOPRAZOLE 40MG TAB (PROTONIX) PO (09:15)
[2017-07-13] MEDS: THIAMINE 100 MG TAB PO (09:15)
[2017-07-13] MEDS: GABAPENTIN 300 MG CAP PO ×2 (09:15→21:08)
[2017-07-13] MEDS: METOPROLOL TARTRATE 100 MG TAB PO (09:15)
[2017-07-13] MEDS: MULTIVITAMINS/MINERALS THERAP 1 TAB PO (09:15)
[2017-07-13] MEDS: amLODIPine 5 MG TAB PO (09:15)
[2017-07-13 12:14] LABS: URIC ACID 7.1 MG/DL (3.5-7.2)
[2017-07-13 12:14] LABS: BEDSIDE GLUCOSE 394 MG/DL (83-110)
[2017-07-13] MEDS: predniSONE 10 MG TAB PO (14:25)
[2017-07-13 17:19] LABS: BEDSIDE GLUCOSE 363 MG/DL (83-110)
[2017-07-13] MEDS: PERCOCET 5MG/325MG TAB PO (18:21)
[2017-07-13] MEDS ORDERED: METOPROLOL TART 50 MG TAB PO (21:00)
[2017-07-13 21:07] LABS: BEDSIDE GLUCOSE 471 MG/DL (83-110)
[2017-07-13] MEDS: TAMSULOSIN 0.4 MG CAP PO (21:08)
[2017-07-14 05:35] LABS: BASO % 0.3 % (0.0-1.0); EOS % 0.1 % (0.0-3.0); HEMATOCRIT 28.4 % (42.0-52.0); HEMOGLOBIN 8.6 g/dl (13.5-17.5); IMMATURE GRANULOCYTE % 0.9 % (0-3.0); LYMPH # 0.4 10^3/uL (1.5-4.5); LYMPH % 5.6 % (24.0-44.0); MEAN CORPUSCULAR HEMOGLOBIN 25.8 pg (27.0-33.0); MEAN CORPUSCULAR HGB CONC 30.3 g/dl (32.0-36.5); MEAN CORPUSCULAR VOLUME 85.3 fl (80.0-96.0); MONO # 0.7 10^3/uL (0.0-0.8); MONO % 9.6 % (0.0-5.0); NEUTROPHILS # 5.8 10^3/uL (1.8-7.7); NEUTROPHILS % 83.5 % (36.0-66.0); PLATELET COUNT, AUTOMATED 148 10^3/uL (150-450); RED BLOOD COUNT 3.33 10^6/uL (4.30-6.10); RED CELL DISTRIBUTION WIDTH 16.9 % (11.5-14.5)
[2017-07-14] MEDS: ENOXAPARIN 100MG/1ML SYRINGE (J1650) SC ×2 (05:38→17:09)
[2017-07-14 06:10] LABS: ALBUMIN 2.2 GM/DL (3.2-5.2); ALBUMIN/GLOBULIN RATIO 0.59 (1.00-1.93); ALKALINE PHOSPHATASE 101 U/L (45-117); ALT/SGPT 19 U/L (12-78); ANION GAP 6 MEQ/L (8-16); AST/SGOT 12 U/L (7-37); BILIRUBIN,TOTAL 0.4 MG/DL (0.2-1.0); BLOOD UREA NITROGEN 20 MG/DL (7-18); CALCIUM LEVEL 8.5 MG/DL (8.8-10.2); CARBON DIOXIDE LEVEL 27 MEQ/L (21-32); CHLORIDE LEVEL 106 MEQ/L (98-107); CREATININE FOR GFR 1.33 MG/DL (0.70-1.30); GLOMERULAR FILTRATION RATE 56.6 (>42); MAGNESIUM LEVEL 2.1 MG/DL (1.8-2.4); POTASSIUM SERUM 4.1 MEQ/L (3.5-5.1); SODIUM LEVEL 139 MEQ/L (136-145); TOTAL PROTEIN 5.9 GM/DL (6.4-8.2)
[2017-07-14 06:12] LABS: GLUCOSE, FASTING 427 MG/DL (70-100)
[2017-07-14 08:00] LABS: FERRITIN 148 NG/ML (26-388); IRON (FE) 13 UG/DL (65-175); LDH LACTATE DEHYDROGENASE 158 U/L (87-241); PERCENT SATURATION 5.2 % (19.7-50.0); TOTAL IRON BINDING CAPACITY 250 UG/DL (250-450)
[2017-07-14] MEDS: LEVEMIR (INSULIN DETEMIR) 1 UNITS/0.01ML SC ×2 (08:04→20:53)
[2017-07-14] MEDS: HumaLOG INSULIN (NovoLOG) PER UNIT SC ×4 (08:04→20:53)
[2017-07-14] MEDS: METOPROLOL SUCC *XL* 25MG TAB (TopROL *XL*) PO (08:05)
[2017-07-14] MEDS: ACETAMINOPHEN TAB 650MG DOSE (2X325MG) PO (08:06)
[2017-07-14] MEDS: OXAZEPAM 10 MG CAP PO ×3 (08:06→20:54)
[2017-07-14] MEDS: predniSONE 10 MG TAB PO (08:07)
[2017-07-14] MEDS: FOLIC ACID 1 MG TAB PO (08:07)
[2017-07-14] MEDS: PANTOPRAZOLE 40MG TAB (PROTONIX) PO (08:07)
[2017-07-14] MEDS: MAGNESIUM OXIDE 400 MG TAB (MAG-OX) PO ×2 (08:07→20:54)
[2017-07-14] MEDS: THIAMINE 100 MG TAB PO (08:07)
[2017-07-14] MEDS: GABAPENTIN 300 MG CAP PO ×2 (08:07→20:54)
[2017-07-14] MEDS: MULTIVITAMINS/MINERALS THERAP 1 TAB PO (08:07)
[2017-07-14] MEDS: amLODIPine 5 MG TAB PO (08:08)
[2017-07-14] MEDS: DIGOXIN 0.125 MG TAB PO (08:08)
[2017-07-14] MEDS: COLCHICINE 0.6 MG TAB PO (09:44)
[2017-07-14] MEDS: predniSONE 20 MG TAB PO (09:45)
[2017-07-14 11:42] LABS: BEDSIDE GLUCOSE 399 MG/DL (83-110)
[2017-07-14 13:13] LABS: HEMATOCRIT 30.8 % (42.0-52.0); HEMOGLOBIN 9.3 g/dl (13.5-17.5)
[2017-07-14 17:01] LABS: BEDSIDE GLUCOSE 472 MG/DL (83-110)
[2017-07-14 20:44] LABS: BEDSIDE GLUCOSE 497 MG/DL (83-110)
[2017-07-14] MEDS: TAMSULOSIN 0.4 MG CAP PO (20:54)
[2017-07-15 05:24] LABS: BASO % 0.2 % (0.0-1.0); EOS % 0.1 % (0.0-3.0); HEMATOCRIT 26.5 % (42.0-52.0); HEMOGLOBIN 8.2 g/dl (13.5-17.5); IMMATURE GRANULOCYTE % 0.7 % (0-3.0); LYMPH # 0.5 10^3/uL (1.5-4.5); LYMPH % 6.7 % (24.0-44.0); MEAN CORPUSCULAR HGB CONC 30.9 g/dl (32.0-36.5); MEAN CORPUSCULAR VOLUME 84.1 fl (80.0-96.0); MONO # 0.5 10^3/uL (0.0-0.8); MONO % 6.6 % (0.0-5.0); NEUTROPHILS # 6.9 10^3/uL (1.8-7.7); NEUTROPHILS % 85.7 % (36.0-66.0); PLATELET COUNT, AUTOMATED 179 10^3/uL (150-450); RED BLOOD COUNT 3.15 10^6/uL (4.30-6.10); RED CELL DISTRIBUTION WIDTH 16.5 % (11.5-14.5); WHITE BLOOD COUNT 8.1 10^3/uL (4.0-10.0)
[2017-07-15] MEDS: ENOXAPARIN 100MG/1ML SYRINGE (J1650) SC (05:25)
[2017-07-15 05:44] LABS: ALBUMIN/GLOBULIN RATIO 0.49 (1.00-1.93); ALKALINE PHOSPHATASE 94 U/L (45-117); ALT/SGPT 16 U/L (12-78); ANION GAP 7 MEQ/L (8-16); AST/SGOT 15 U/L (7-37); BILIRUBIN,TOTAL 0.2 MG/DL (0.2-1.0); BLOOD UREA NITROGEN 22 MG/DL (7-18); CALCIUM LEVEL 8.5 MG/DL (8.8-10.2); CARBON DIOXIDE LEVEL 27 MEQ/L (21-32); CHLORIDE LEVEL 104 MEQ/L (98-107); CREATININE FOR GFR 1.17 MG/DL (0.70-1.30); GLOMERULAR FILTRATION RATE > 60.0 (>42); GLUCOSE, FASTING 333 MG/DL (70-100); MAGNESIUM LEVEL 2.3 MG/DL (1.8-2.4); POTASSIUM SERUM 4.1 MEQ/L (3.5-5.1); SODIUM LEVEL 138 MEQ/L (136-145); TOTAL PROTEIN 6.1 GM/DL (6.4-8.2)
[2017-07-15] MEDS: HumaLOG INSULIN (NovoLOG) PER UNIT SC ×4 (07:36→20:42)
[2017-07-15 08:09] LABS: VITAMIN B12 LEVEL 201 PG/ML (247-911)
[2017-07-15 08:10] LABS: FOLATE 12.3 NG/ML (>5.4)
[2017-07-15] MEDS: PANTOPRAZOLE 40MG TAB (PROTONIX) PO (09:09)
[2017-07-15] MEDS: METOPROLOL SUCC *XL* 25MG TAB (TopROL *XL*) PO (09:09)
[2017-07-15] MEDS: predniSONE 10 MG TAB PO (09:10)
[2017-07-15] MEDS: MULTIVITAMINS/MINERALS THERAP 1 TAB PO (09:10)
[2017-07-15] MEDS: OXAZEPAM 10 MG CAP PO ×3 (09:10→20:41)
[2017-07-15] MEDS: FOLIC ACID 1 MG TAB PO (09:10)
[2017-07-15] MEDS: GABAPENTIN 300 MG CAP PO ×2 (09:10→20:41)
[2017-07-15] MEDS: THIAMINE 100 MG TAB PO (09:10)
[2017-07-15] MEDS: MAGNESIUM OXIDE 400 MG TAB (MAG-OX) PO (09:11)
[2017-07-15] MEDS: DIGOXIN 0.125 MG TAB PO (09:11)
[2017-07-15] MEDS: amLODIPine 5 MG TAB PO (09:11)
[2017-07-15] MEDS: LEVEMIR (INSULIN DETEMIR) 1 UNITS/0.01ML SC ×2 (09:12→20:43)
[2017-07-15 11:52] LABS: BEDSIDE GLUCOSE 355 MG/DL (83-110)
[2017-07-15 17:31] LABS: BEDSIDE GLUCOSE 349 MG/DL (83-110)
[2017-07-15] MEDS: TAMSULOSIN 0.4 MG CAP PO (20:41)
[2017-07-15 20:44] LABS: BEDSIDE GLUCOSE 378 MG/DL (83-110)
[2017-07-16 05:22] LABS: BASO % 0.5 % (0.0-1.0); EOS # 0.1 10^3/uL (0.0-0.50); HEMATOCRIT 27.9 % (42.0-52.0); HEMOGLOBIN 8.7 g/dl (13.5-17.5); IMMATURE GRANULOCYTE % 1.4 % (0-3.0); LYMPH # 0.7 10^3/uL (1.5-4.5); LYMPH % 10.8 % (24.0-44.0); MEAN CORPUSCULAR HGB CONC 31.2 g/dl (32.0-36.5); MEAN CORPUSCULAR VOLUME 83.5 fl (80.0-96.0); MONO # 0.6 10^3/uL (0.0-0.8); MONO % 8.6 % (0.0-5.0); NEUTROPHILS % 76.7 % (36.0-66.0); PLATELET COUNT, AUTOMATED 215 10^3/uL (150-450); RED BLOOD COUNT 3.34 10^6/uL (4.30-6.10); RED CELL DISTRIBUTION WIDTH 16.2 % (11.5-14.5); WHITE BLOOD COUNT 6.5 10^3/uL (4.0-10.0)
[2017-07-16 05:44] LABS: ALBUMIN 2.1 GM/DL (3.2-5.2); ALBUMIN/GLOBULIN RATIO 0.55 (1.00-1.93); ALKALINE PHOSPHATASE 87 U/L (45-117); ALT/SGPT 15 U/L (12-78); ANION GAP 5 MEQ/L (8-16); AST/SGOT 17 U/L (7-37); BILIRUBIN,TOTAL 0.2 MG/DL (0.2-1.0); BLOOD UREA NITROGEN 24 MG/DL (7-18); CALCIUM LEVEL 8.4 MG/DL (8.8-10.2); CARBON DIOXIDE LEVEL 29 MEQ/L (21-32); CHLORIDE LEVEL 105 MEQ/L (98-107); CREATININE FOR GFR 0.94 MG/DL (0.70-1.30); GLOMERULAR FILTRATION RATE > 60.0 (>42); GLUCOSE, FASTING 206 MG/DL (70-100); MAGNESIUM LEVEL 2.1 MG/DL (1.8-2.4); POTASSIUM SERUM 3.8 MEQ/L (3.5-5.1); SODIUM LEVEL 139 MEQ/L (136-145); TOTAL PROTEIN 5.9 GM/DL (6.4-8.2)
[2017-07-16 08:06] LABS: HAPTOGLOBIN 259 mg/dL (34-200)
[2017-07-16] MEDS: THIAMINE 100 MG TAB PO (08:56)
[2017-07-16] MEDS: OXAZEPAM 10 MG CAP PO ×3 (08:56→20:54)
[2017-07-16] MEDS: MULTIVITAMINS/MINERALS THERAP 1 TAB PO (08:56)
[2017-07-16] MEDS: METOPROLOL SUCC *XL* 25MG TAB (TopROL *XL*) PO (08:56)
[2017-07-16] MEDS: MAGNESIUM OXIDE 400 MG TAB (MAG-OX) PO (08:56)
[2017-07-16] MEDS: PANTOPRAZOLE 40MG TAB (PROTONIX) PO (08:57)
[2017-07-16] MEDS: DIGOXIN 0.125 MG TAB PO (08:57)
[2017-07-16] MEDS: predniSONE 10 MG TAB PO (08:57)
[2017-07-16] MEDS: FOLIC ACID 1 MG TAB PO (08:57)
[2017-07-16] MEDS: GABAPENTIN 300 MG CAP PO ×2 (08:57→20:54)
[2017-07-16] MEDS: amLODIPine 5 MG TAB PO (08:57)
[2017-07-16] MEDS: HumaLOG INSULIN (NovoLOG) PER UNIT SC ×4 (08:58→20:55)
[2017-07-16] MEDS: LEVEMIR (INSULIN DETEMIR) 1 UNITS/0.01ML SC ×2 (08:58→20:55)
[2017-07-16 17:01] LABS: BEDSIDE GLUCOSE 214 MG/DL (83-110)
[2017-07-16 17:01] LABS: BEDSIDE GLUCOSE 340 MG/DL (83-110)
[2017-07-16 20:26] LABS: BEDSIDE GLUCOSE 311 MG/DL (83-110)
[2017-07-16] MEDS: TAMSULOSIN 0.4 MG CAP PO (20:54)
[2017-07-17 05:26] LABS: BASO % 0.4 % (0.0-1.0); EOS # 0.3 10^3/uL (0.0-0.50); EOS % 3.6 % (0.0-3.0); HEMOGLOBIN 8.4 g/dl (13.5-17.5); IMMATURE GRANULOCYTE % 2.1 % (0-3.0); LYMPH # 0.8 10^3/uL (1.5-4.5); MEAN CORPUSCULAR HEMOGLOBIN 26.1 pg (27.0-33.0); MEAN CORPUSCULAR HGB CONC 31.1 g/dl (32.0-36.5); MEAN CORPUSCULAR VOLUME 83.9 fl (80.0-96.0); MONO # 0.6 10^3/uL (0.0-0.8); MONO % 8.3 % (0.0-5.0); NEUTROPHILS # 5.6 10^3/uL (1.8-7.7); NEUTROPHILS % 74.6 % (36.0-66.0); PLATELET COUNT, AUTOMATED 217 10^3/uL (150-450); RED BLOOD COUNT 3.22 10^6/uL (4.30-6.10); RED CELL DISTRIBUTION WIDTH 16.6 % (11.5-14.5); WHITE BLOOD COUNT 7.6 10^3/uL (4.0-10.0)
[2017-07-17 05:44] LABS: ALBUMIN 2.1 GM/DL (3.2-5.2); ALBUMIN/GLOBULIN RATIO 0.57 (1.00-1.93); ALKALINE PHOSPHATASE 80 U/L (45-117); ALT/SGPT 17 U/L (12-78); ANION GAP 7 MEQ/L (8-16); AST/SGOT 20 U/L (7-37); BILIRUBIN,TOTAL 0.3 MG/DL (0.2-1.0); BLOOD UREA NITROGEN 25 MG/DL (7-18); CALCIUM LEVEL 8.4 MG/DL (8.8-10.2); CARBON DIOXIDE LEVEL 27 MEQ/L (21-32); CHLORIDE LEVEL 109 MEQ/L (98-107); CREATININE FOR GFR 0.92 MG/DL (0.70-1.30); GLOMERULAR FILTRATION RATE > 60.0 (>42); GLUCOSE, FASTING 58 MG/DL (70-100); MAGNESIUM LEVEL 2.1 MG/DL (1.8-2.4); POTASSIUM SERUM 3.5 MEQ/L (3.5-5.1); SODIUM LEVEL 143 MEQ/L (136-145); TOTAL PROTEIN 5.8 GM/DL (6.4-8.2)
[2017-07-17 06:47] LABS: BEDSIDE GLUCOSE 77 MG/DL (83-110)
[2017-07-17] MEDS: HumaLOG INSULIN (NovoLOG) PER UNIT SC ×4 (07:30→20:51)
[2017-07-17] MEDS: GABAPENTIN 300 MG CAP PO ×2 (08:54→20:49)
[2017-07-17] MEDS: MULTIVITAMINS/MINERALS THERAP 1 TAB PO (08:54)
[2017-07-17] MEDS: PANTOPRAZOLE 40MG TAB (PROTONIX) PO (08:54)
[2017-07-17] MEDS: MAGNESIUM OXIDE 400 MG TAB (MAG-OX) PO (08:54)
[2017-07-17] MEDS: FOLIC ACID 1 MG TAB PO (08:54)
[2017-07-17] MEDS: THIAMINE 100 MG TAB PO (08:54)
[2017-07-17] MEDS: OXAZEPAM 10 MG CAP PO ×3 (08:55→20:50)
[2017-07-17] MEDS: predniSONE 10 MG TAB PO (08:55)
[2017-07-17] MEDS: DIGOXIN 0.125 MG TAB PO (08:55)
[2017-07-17] MEDS: METOPROLOL SUCC *XL* 25MG TAB (TopROL *XL*) PO (08:56)
[2017-07-17] MEDS: amLODIPine 5 MG TAB PO (08:56)
[2017-07-17] MEDS: LEVEMIR (INSULIN DETEMIR) 1 UNITS/0.01ML SC ×2 (08:57→20:51)
[2017-07-17 12:17] LABS: BEDSIDE GLUCOSE 202 MG/DL (83-110)
[2017-07-17] MEDS: POTASSIUM CHLORIDE 10 MEQ SR TABLET PO (14:37)
[2017-07-17 17:07] LABS: BEDSIDE GLUCOSE 222 MG/DL (83-110)
[2017-07-17 20:44] LABS: BEDSIDE GLUCOSE 267 MG/DL (83-110)
[2017-07-17] MEDS: TAMSULOSIN 0.4 MG CAP PO (20:49)
[2017-07-17] MEDS: RIVAROXABAN 20 MG TAB (XARELTO) PO (20:50)
[2017-07-18 06:15] LABS: HEMATOCRIT 28.1 % (42.0-52.0); HEMOGLOBIN 8.7 g/dl (13.5-17.5); MEAN CORPUSCULAR VOLUME 83.9 fl (80.0-96.0); PLATELET COUNT, AUTOMATED 247 10^3/uL (150-450); RED BLOOD COUNT 3.35 10^6/uL (4.30-6.10); RED CELL DISTRIBUTION WIDTH 16.9 % (11.5-14.5); WHITE BLOOD COUNT 11.8 10^3/uL (4.0-10.0)
[2017-07-18 06:19] LABS: ADD MANUAL DIFFER YES; DIFF SLIDE NUMBER 5; POSITIVE MORPH POS FLAG
[2017-07-18 06:40] LABS: ALBUMIN 2.2 GM/DL (3.2-5.2); ALBUMIN/GLOBULIN RATIO 0.58 (1.00-1.93); ALKALINE PHOSPHATASE 90 U/L (45-117); ALT/SGPT 14 U/L (12-78); ANION GAP 7 MEQ/L (8-16); AST/SGOT 16 U/L (7-37); BILIRUBIN,TOTAL 0.3 MG/DL (0.2-1.0); BLOOD UREA NITROGEN 23 MG/DL (7-18); CALCIUM LEVEL 8.1 MG/DL (8.8-10.2); CARBON DIOXIDE LEVEL 25 MEQ/L (21-32); CHLORIDE LEVEL 108 MEQ/L (98-107); CREATININE FOR GFR 1.05 MG/DL (0.70-1.30); GLOMERULAR FILTRATION RATE > 60.0 (>42); GLUCOSE, FASTING 45 MG/DL (70-100); POTASSIUM SERUM 3.8 MEQ/L (3.5-5.1); SODIUM LEVEL 140 MEQ/L (136-145)
[2017-07-18 06:41] LABS: EOSINOPHILS 1 % (0-5); HYPOCHROMASIA 1+; LYMPHOCYTES 7 % (16-52); NEUTROPHILS 92 % (35-75); PLATELET ESTIMATE NORMAL (NORMAL)
[2017-07-18] MEDS: HumaLOG INSULIN (NovoLOG) PER UNIT SC ×4 (07:30→21:12)
[2017-07-18] MEDS: predniSONE 10 MG TAB PO (08:20)
[2017-07-18] MEDS: MAGNESIUM OXIDE 400 MG TAB (MAG-OX) PO (08:21)
[2017-07-18] MEDS: THIAMINE 100 MG TAB PO (08:21)
[2017-07-18] MEDS: FOLIC ACID 1 MG TAB PO (08:21)
[2017-07-18] MEDS: MULTIVITAMINS/MINERALS THERAP 1 TAB PO (08:21)
[2017-07-18] MEDS: OXAZEPAM 10 MG CAP PO ×3 (08:21→22:59)
[2017-07-18] MEDS: PANTOPRAZOLE 40MG TAB (PROTONIX) PO (08:21)
[2017-07-18] MEDS: GABAPENTIN 300 MG CAP PO ×2 (08:21→21:04)
[2017-07-18] MEDS: DIGOXIN 0.125 MG TAB PO (08:21)
[2017-07-18] MEDS: amLODIPine 5 MG TAB PO (08:22)
[2017-07-18] MEDS: METOPROLOL SUCC *XL* 25MG TAB (TopROL *XL*) PO (08:23)
[2017-07-18 08:32] LABS: BEDSIDE GLUCOSE 97 MG/DL (83-110)
[2017-07-18 11:49] LABS: BEDSIDE GLUCOSE 307 MG/DL (83-110)
[2017-07-18] MEDS: CYANOCOBALAMIN 1,000 MCG/ML VIAL (J3420) IM (12:05)
[2017-07-18] MEDS: LEVEMIR (INSULIN DETEMIR) 1 UNITS/0.01ML SC (12:48)
[2017-07-18] MEDS: TAMSULOSIN 0.4 MG CAP PO (21:03)
[2017-07-18] MEDS: RIVAROXABAN 20 MG TAB (XARELTO) PO (21:03)
[2017-07-19 06:46] LABS: BEDSIDE GLUCOSE 68 MG/DL (83-110)
[2017-07-19] MEDS: HumaLOG INSULIN (NovoLOG) PER UNIT SC ×2 (07:30→13:01)
[2017-07-19 08:28] LABS: BEDSIDE GLUCOSE 319 MG/DL (83-110)
[2017-07-19 08:28] LABS: BEDSIDE GLUCOSE 300 MG/DL (83-110)
[2017-07-19] MEDS: LEVEMIR (INSULIN DETEMIR) 1 UNITS/0.01ML SC (08:40)
[2017-07-19] MEDS: MULTIVITAMINS/MINERALS THERAP 1 TAB PO (08:41)
[2017-07-19] MEDS: THIAMINE 100 MG TAB PO (08:41)
[2017-07-19] MEDS: DIGOXIN 0.125 MG TAB PO (08:41)
[2017-07-19] MEDS: METOPROLOL SUCC *XL* 25MG TAB (TopROL *XL*) PO (08:41)
[2017-07-19] MEDS: FOLIC ACID 1 MG TAB PO (08:42)
[2017-07-19] MEDS: PANTOPRAZOLE 40MG TAB (PROTONIX) PO (08:42)
[2017-07-19] MEDS: GABAPENTIN 300 MG CAP PO (08:42)
[2017-07-19] MEDS: MAGNESIUM OXIDE 400 MG TAB (MAG-OX) PO (08:42)
[2017-07-19] MEDS: amLODIPine 5 MG TAB PO (08:42)
[2017-07-19] MEDS: predniSONE 10 MG TAB PO (08:42)
[2017-07-19] MEDS: OXAZEPAM 10 MG CAP PO ×2 (08:43→15:42)
[2017-07-19] MEDS: CYANOCOBALAMIN 1,000 MCG/ML VIAL (J3420) IM (08:44)
[2017-07-19 09:05] LABS: HEMATOCRIT 28.5 % (42.0-52.0); HEMOGLOBIN 8.7 g/dl (13.5-17.5); MEAN CORPUSCULAR HEMOGLOBIN 25.8 pg (27.0-33.0); MEAN CORPUSCULAR HGB CONC 30.5 g/dl (32.0-36.5); MEAN CORPUSCULAR VOLUME 84.6 fl (80.0-96.0); PLATELET COUNT, AUTOMATED 269 10^3/uL (150-450); RED BLOOD COUNT 3.37 10^6/uL (4.30-6.10); RED CELL DISTRIBUTION WIDTH 17.2 % (11.5-14.5); WHITE BLOOD COUNT 9.2 10^3/uL (4.0-10.0)
[2017-07-19 09:31] LABS: ANION GAP 7 MEQ/L (8-16); BLOOD UREA NITROGEN 25 MG/DL (7-18); C REACTIVE PROTEIN QUANTITATIV 5.75 MG/DL (0.00-0.30); CARBON DIOXIDE LEVEL 25 MEQ/L (21-32); CHLORIDE LEVEL 105 MEQ/L (98-107); CREATININE FOR GFR 1.14 MG/DL (0.70-1.30); GLOMERULAR FILTRATION RATE > 60.0 (>42); GLUCOSE, FASTING 181 MG/DL (70-100); POTASSIUM SERUM 4.3 MEQ/L (3.5-5.1); SODIUM LEVEL 137 MEQ/L (136-145)
[2017-07-19 12:39] LABS: HEMATOCRIT 28.2 % (42.0-52.0); HEMOGLOBIN 8.7 g/dl (13.5-17.5); MEAN CORPUSCULAR HGB CONC 30.9 g/dl (32.0-36.5); MEAN CORPUSCULAR VOLUME 84.4 fl (80.0-96.0); PLATELET COUNT, AUTOMATED 267 10^3/uL (150-450); RED BLOOD COUNT 3.34 10^6/uL (4.30-6.10); RED CELL DISTRIBUTION WIDTH 17.2 % (11.5-14.5); WHITE BLOOD COUNT 9.3 10^3/uL (4.0-10.0)
[2017-07-19 12:42] LABS: BEDSIDE GLUCOSE 262 MG/DL (83-110)
[2017-07-19 13:02] LABS: ANION GAP 9 MEQ/L (8-16); BLOOD UREA NITROGEN 23 MG/DL (7-18); CARBON DIOXIDE LEVEL 23 MEQ/L (21-32); CHLORIDE LEVEL 103 MEQ/L (98-107); CK-MB VALUE MASS < 1.0 NG/ML (<3.6); CPK CREATINE PHOSPHOKINASE 25 U/L (39-308); CREATININE FOR GFR 1.13 MG/DL (0.70-1.30); GLOMERULAR FILTRATION RATE > 60.0 (>42); GLUCOSE, FASTING 253 MG/DL (70-100); MAGNESIUM LEVEL 2.1 MG/DL (1.8-2.4); POTASSIUM SERUM 4.2 MEQ/L (3.5-5.1); SODIUM LEVEL 135 MEQ/L (136-145); TROPONIN I < 0.02 NG/ML (< 0.10)
== END 2017-07-19 16:00 | disposition home health service (06) | DRG 641 ==
LOC: M MSPAV 07-17 22:21 → M ED 01:05 → M ED INP 04:18 → M PCU 13:22
DX: E86.0 Dehydration (principal); I50.32 Chronic diastolic (congestive) heart failure; N17.9 Acute kidney failure, unspecified; I47.2 Ventricular tachycardia; G47.33 Obstructive sleep apnea (adult) (pediatric); E53.8 Deficiency of other specified B group vitamins; D64.9 Anemia, unspecified; M10.9 Gout, unspecified; R31.9 Hematuria, unspecified; I48.91 Unspecified atrial fibrillation; Z79.01 Long term (current) use of anticoagulants; I95.1 Orthostatic hypotension; F10.10 Alcohol abuse, uncomplicated; Z85.46 Personal history of malignant neoplasm of prostate; Z91.19 Patient's noncompliance with other medical treatment and regimen; Z79.899 Other long term (current) drug therapy; Z79.4 Long term (current) use of insulin; I11.0 Hypertensive heart disease with heart failure; Z95.2 Presence of prosthetic heart valve; E11.9 Type 2 diabetes mellitus without complications; R26.89 Other abnormalities of gait and mobility; I87.2 Venous insufficiency (chronic) (peripheral); F32.9 Major depressive disorder, single episode, unspecified; K21.9 Gastro-esophageal reflux disease without esophagitis; E78.5 Hyperlipidemia, unspecified

== ENCOUNTER 2017-07-28 10:50 | Inpatient (IN) | payer MEDICARE ==
[2017-07-28] MEDS: ONDANSETRON 4MG/2ML VIAL (J2405) IV ×2 (12:10→23:50)
[2017-07-28 12:12] LABS: BASO # 0.1 10^3/uL (0.0-0.2); BASO % 0.4 % (0.0-1.0); EOS % 0.2 % (0.0-3.0); HEMATOCRIT 27.7 % (42.0-52.0); HEMOGLOBIN 8.9 g/dl (13.5-17.5); IMMATURE GRANULOCYTE % 0.9 % (0-3.0); LYMPH # 0.7 10^3/uL (1.5-4.5); LYMPH % 5.2 % (24.0-44.0); MEAN CORPUSCULAR HEMOGLOBIN 25.6 pg (27.0-33.0); MEAN CORPUSCULAR HGB CONC 32.1 g/dl (32.0-36.5); MEAN CORPUSCULAR VOLUME 79.8 fl (80.0-96.0); MONO # 0.8 10^3/uL (0.0-0.8); MONO % 5.8 % (0.0-5.0); NEUTROPHILS # 11.6 10^3/uL (1.8-7.7); NEUTROPHILS % 87.5 % (36.0-66.0); PLATELET COUNT, AUTOMATED 322 10^3/uL (150-450); RED BLOOD COUNT 3.47 10^6/uL (4.30-6.10); RED CELL DISTRIBUTION WIDTH 16.4 % (11.5-14.5); WHITE BLOOD COUNT 13.2 10^3/uL (4.0-10.0)
[2017-07-28 12:16] LABS: INR 2.14; PARTIAL THROMBOPLASTIN TIME 47.5 SECONDS (26.8-37.9); PROTHROMBIN TIME 24.7 SECONDS (12.4-14.5)
[2017-07-28 12:21] LABS: ALBUMIN 2.9 GM/DL (3.2-5.2); ALBUMIN/GLOBULIN RATIO 0.73 (1.00-1.93); ALKALINE PHOSPHATASE 95 U/L (45-117); ALT/SGPT 12 U/L (12-78); ANION GAP 16 MEQ/L (8-16); AST/SGOT 14 U/L (7-37); BILIRUBIN,DIRECT 0.1 MG/DL (0.0-0.2); BILIRUBIN,TOTAL 0.5 MG/DL (0.2-1.0); BLOOD UREA NITROGEN 17 MG/DL (7-18); CALCIUM LEVEL 8.4 MG/DL (8.8-10.2); CARBON DIOXIDE LEVEL 19 MEQ/L (21-32); CHLORIDE LEVEL 97 MEQ/L (98-107); CREATININE FOR GFR 1.35 MG/DL (0.70-1.30); GLOMERULAR FILTRATION RATE 55.6 (>42); GLUCOSE, FASTING 204 MG/DL (70-100); POTASSIUM SERUM 3.6 MEQ/L (3.5-5.1); SODIUM LEVEL 132 MEQ/L (136-145); TOTAL PROTEIN 6.9 GM/DL (6.4-8.2)
[2017-07-28 12:39] LABS: ETHYL ALCOHOL (ETHANOL) 0.154 % (0.000-0.010)
[2017-07-28] MEDS ORDERED: ISOVUE-370 76% 100ML VIAL (Q9967) As Ordered (12:46)
[2017-07-28] MEDS: OXAZEPAM 15 MG CAP PO (13:28)
[2017-07-28] MEDS ORDERED: ACETAMINOPHEN TAB 650MG DOSE (2X325MG) PO (14:45)
[2017-07-28] MEDS ORDERED: GABAPENTIN 300 MG CAP PO (16:45)
[2017-07-28] MEDS ORDERED: GLUCOSE 4 GM CHEW TABLET PO (16:45)
[2017-07-28] MEDS ORDERED: EUCERIN 120GM CREAM TOP (16:45)
[2017-07-28] MEDS ORDERED: GLUCAGON FOR INJ 1 MG VIAL (J1610) SC (16:45)
[2017-07-28] MEDS ORDERED: DEXTROSE 50% 50 ML SYRINGE IV (16:45)
[2017-07-28 17:04] LABS: BEDSIDE GLUCOSE 243 MG/DL (83-110)
[2017-07-28] MEDS: HumaLOG INSULIN (NovoLOG) PER UNIT SC ×2 (17:30→21:00)
[2017-07-28 19:12] LABS: HEMATOCRIT 26.1 % (42.0-52.0); HEMOGLOBIN 8.3 g/dl (13.5-17.5)
[2017-07-28 20:39] LABS: BEDSIDE GLUCOSE 240 MG/DL (83-110)
[2017-07-28] MEDS: cefTRIAXone SOD 1 GM in D5W MINI-BAG PLUS 50 ML IV (23:09)
[2017-07-28] MEDS: GABAPENTIN 300 MG CAP PO (23:09)
[2017-07-28] MEDS: LEVEMIR (INSULIN DETEMIR) 1 UNITS/0.01ML SC (23:10)
[2017-07-28] MEDS: OXAZEPAM 10 MG CAP PO (23:48)
[2017-07-29 00:02] LABS: HEMATOCRIT 25.1 % (42.0-52.0); HEMOGLOBIN 7.6 g/dl (13.5-17.5)
[2017-07-29 00:38] LABS: BEDSIDE GLUCOSE 255 MG/DL (83-110)
[2017-07-29] MEDS ORDERED: PHENYLEPHRINE INJ 10MG/ML VIAL (J2370) As Ordered ×2 (00:46→00:48)
[2017-07-29] MEDS ORDERED: NOREPINEPHRINE 4 MG/4 ML AMP As Ordered (00:59)
[2017-07-29] MEDS: PHENYLEPHRINE HCL INJ 50 MG in D5W 500 ML IV (01:10)
[2017-07-29] MEDS: NOREPINEPHRINE BITARTRATE 8 MG in D5W 492 ML IV (01:15)
[2017-07-29 01:44] LABS: HEMATOCRIT 21.1 % (42.0-52.0); MEAN CORPUSCULAR HEMOGLOBIN 26.5 pg (27.0-33.0); MEAN CORPUSCULAR HGB CONC 28.9 g/dl (32.0-36.5); MEAN CORPUSCULAR VOLUME 91.7 fl (80.0-96.0); PLATELET COUNT, AUTOMATED 351 10^3/uL (150-450); RED CELL DISTRIBUTION WIDTH 17.1 % (11.5-14.5)
[2017-07-29 01:45] LABS: HEMOGLOBIN 6.1 g/dl (13.5-17.5); POS COUNT POS FLAG; WHITE BLOOD COUNT 44.7 10^3/uL (4.0-10.0)
[2017-07-29 01:59] LABS: PARTIAL THROMBOPLASTIN TIME 48.5 SECONDS (26.8-37.9)
[2017-07-29 02:07] LABS: ALBUMIN 1.9 GM/DL (3.2-5.2); ALBUMIN/GLOBULIN RATIO 0.79 (1.00-1.93); ALKALINE PHOSPHATASE 81 U/L (45-117); ALT/SGPT 46 U/L (12-78); ANION GAP 20 MEQ/L (8-16); AST/SGOT 76 U/L (7-37); BILIRUBIN,TOTAL 0.8 MG/DL (0.2-1.0); BLOOD UREA NITROGEN 19 MG/DL (7-18); CALCIUM LEVEL 7.2 MG/DL (8.8-10.2); CARBON DIOXIDE LEVEL 13 MEQ/L (21-32); CHLORIDE LEVEL 105 MEQ/L (98-107); CHOLESTEROL LEVEL 123 MG/DL (< 200); CPK CREATINE PHOSPHOKINASE 50 U/L (39-308); CREATININE FOR GFR 1.93 MG/DL (0.70-1.30); GLOMERULAR FILTRATION RATE 36.8 (>42); GLUCOSE, FASTING 217 MG/DL (70-100); INR 2.27; LDH LACTATE DEHYDROGENASE 398 U/L (87-241); MAGNESIUM LEVEL 1.7 MG/DL (1.8-2.4); PHOSPHORUS LEVEL 6.5 MG/DL (2.5-4.9); PROTHROMBIN TIME 25.9 SECONDS (12.4-14.5); SODIUM LEVEL 138 MEQ/L (136-145); TOTAL PROTEIN 4.3 GM/DL (6.4-8.2); TRIGLYCERIDES LEVEL 145 MG/DL (<150)
[2017-07-29 02:09] LABS: POTASSIUM SERUM 5.6 MEQ/L (3.5-5.1)
[2017-07-29] MEDS ORDERED: amLODIPine 5 MG TAB PO (09:00)
[2017-07-29] MEDS ORDERED: CYANOCOBALAMIN 500 MCG TAB PO (09:00)
[2017-07-29] MEDS ORDERED: THIAMINE 100 MG TAB PO (09:00)
[2017-07-29] MEDS ORDERED: MULTIVITAMINS/MINERALS THERAP 1 TAB PO (09:00)
[2017-07-29] MEDS ORDERED: FOLIC ACID 1 MG TAB PO (09:00)
[2017-07-29] MEDS ORDERED: METOPROLOL SUCC *XL* 25MG TAB (TopROL *XL*) PO (09:00)
[2017-07-29] MEDS ORDERED: DIGOXIN 0.125 MG TAB PO (09:00)
[2017-07-29] MEDS ORDERED: PANTOPRAZOLE 40MG TAB (PROTONIX) PO (09:00)
== END 2017-07-29 02:05 | disposition expired | DRG 813 ==
LOC: M ICU 07-29 01:00 → M ED 10:50 → M ED INP 14:31 → M MS5PR 16:30
DX: D68.32 Hemorrhagic disorder due to extrinsic circulating anticoagulants (principal); I21.19 ST elevation (STEMI) myocardial infarction involving other coronary artery of inferior wall; I50.32 Chronic diastolic (congestive) heart failure; N30.41 Irradiation cystitis with hematuria; I95.9 Hypotension, unspecified; D64.9 Anemia, unspecified; E78.5 Hyperlipidemia, unspecified; I46.9 Cardiac arrest, cause unspecified; I48.91 Unspecified atrial fibrillation; E11.9 Type 2 diabetes mellitus without complications; G47.33 Obstructive sleep apnea (adult) (pediatric); R57.1 Hypovolemic shock; F32.9 Major depressive disorder, single episode, unspecified; K70.30 Alcoholic cirrhosis of liver without ascites; R57.8 Other shock; I87.2 Venous insufficiency (chronic) (peripheral); F10.20 Alcohol dependence, uncomplicated; R26.81 Unsteadiness on feet; I10 Essential (primary) hypertension; Z85.46 Personal history of malignant neoplasm of prostate; Z95.3 Presence of xenogenic heart valve; Z98.1 Arthrodesis status; Z79.01 Long term (current) use of anticoagulants; Z91.19 Patient's noncompliance with other medical treatment and regimen; Z86.718 Personal history of other venous thrombosis and embolism; Z79.4 Long term (current) use of insulin; Z79.899 Other long term (current) drug therapy; Z92.3 Personal history of irradiation